=== PATIENT | male | born 2005 | race Caucasian/White ===

== ENCOUNTER 2024-04-06 11:40 | Emergency (ER) | payer BC, SELFPAY ==
[2024-04-06 11:45] VITALS: BP 144/77; PULSE 85; RESP 16; TEMP 36.7; O2SAT 98
--- NOTE | 2024-04-06 12:05 | ED.GENADUL_ITS ---
Discharge Plan Disposition Patient Disposition: Home Discharge Details Clinical Impression: Abdominal pain Primary Care Provider: Unknown,Unknown ED Provider: Adela Gracia Home Meds and New Rx's Prescriptions: Continued omeprazole 40 mg capsule,delayed release(DR/EC) 40 mg PO DAILY Qty: 30 0RF ondansetron HCl 4 mg tablet 4 mg PO Q8H PRN (Reason: nausea and vomiting) Qty: 10 0RF sucralfate [Carafate] 1 gram tablet 1 g PO TID Qty: 21 0RF Discharge Instructions Instructions: Abdominal Pain, Adult ED Additional Instructions: Please follow-up with [facility] first thing Sunday to schedule follow-up appointment. An ultrasound may be ordered by her PCP to further stephany luate your belly pain. Continue taking medications as prescribed. I recommend he take Zofran as needed for nausea, and may be helpful to take this before taking her medications if you feel nausea. For discomfort you may use Tylenol. Return to emergency care if develop new severe abdominal pain, episodes of passing out/dizziness, blood in your vomit or stool, or if you are very worried and need to be rechecked again immediately HPI General Date/Time Provider Initiated Documentation: 04/06/24 11:43 . HPI Narrative: Laz is 18-year-old male who presents to the emergency department today for evaluation of acutely worsening left upper quadrant pain with heartburn. He reports that he has had this pain for 3 months, initially started as intermittent stabbing pain to his left upper quadrant after eating accompanied by burning sensation around his epigastrium. For the last 4 days it has been continuous, waxing and waning in intensity, worse after eating. Today he has been unable to tolerate p.o. intake due to the nausea and pain. He denies associated fever/chills, chest pain, difficulty breathing, rashes, recent tick bites, blood in stool or emesis, change in urine output. He has had occasional vomiting, has diarrhea 3-4 times a day. No history of abdominal surgeries or digestive disorders. He does have significant family history of gallbladder disease. He was seen in urgent care yesterday, prescribed Carafate and omeprazole, as well as Zofran. He took the Carafate today, did not take the Zofran. He came in because he feels like the pain is worse today than it was yesterday. He is in the process of establishing care with PCP at [facility]. Related Data Home Medications Medication Instructions Recorded Confirmed omeprazole 40 mg capsule,delayed 40 mg PO DAILY #30 caps 04/05/24 04/06/24 release ondansetron HCl 4 mg tablet 4 mg PO Q8H PRN nausea and 04/05/24 04/06/24 vomiting #10 tabs sucralfate 1 gram tablet (Carafate) 1 g PO TID #21 tabs 04/05/24 04/06/24 Previous Rx's Medication Instructions Recorded omeprazole 40 mg capsule,delayed 40 mg PO DAILY #30 caps 04/05/24 release ondansetron HCl 4 mg tablet 4 mg PO Q8H PRN nausea and 04/05/24 vomiting #10 tabs sucralfate 1 gram tablet (Carafate) 1 g PO TID #21 tabs 04/05/24 Allergies Allergy/AdvReac Type Severity Reaction Status Date / Time No Known Allergies Allergy Verified 04/06/24 11:49 General Stated Complaint: Abd Prob JUVENCIO: 3 Review of Systems Narrative: see HPI Exam Const General: cooperative, healthy appearing, comfortable, no acute distress, well developed and well groomed Nutritional Appearance: average body habitus HENMT Mouth: moist mucous membranes Resp Effort & Inspection: normal respiratory effort and able to speak in complete sentences Auscultation: clear to auscultation bilaterally Cardio Rate: regular rate Rhythm: regular rhythm GI Inspection: normal to inspection Palpation: soft, no hepatosplenomegaly, not firm, no guarding, not rigid, tender in the LUQ and No ascites Course Vital Signs Vital signs: Vital Signs Temperature 36.7 C 04/06/24 11:45 Pulse 85 04/06/24 11:45 Respiratory Rate 16 04/06/24 11:45 Blood Pressure 144/77 H 04/06/24 11:45 Pulse Oximetry 98 04/06/24 11:45 Temperature 36.7 C 04/06/24 11:45 Pulse 85 04/06/24 11:45 Respiratory Rate 16 04/06/24 11:45 Blood Pressure 144/77 H 04/06/24 11:45 Pulse Oximetry 98 04/06/24 11:45 Oxygen Delivery Method Room Air 04/06/24 11:45 Oxygen Flow Rate 0 04/06/24 11:45 Pain Level 7 04/06/24 11:45 Medical Decision Making Laz is 18-year-old male who presents to the emergency department today for evaluation of acutely worsening left upper quadrant pain with heartburn. He reports that he has had this pain for 3 months, initially started as intermittent stabbing pain to his left upper quadrant after eating accompanied by burning sensation around his epigastrium. For the last 4 days it has been continuous, waxing and waning in intensity, worse after eating. Today he has been unable to tolerate p.o. intake due to the nausea and pain. He denies associated fever/chills, chest pain, difficulty breathing, rashes, recent tick bites, blood in stool or emesis, change in urine output. He has had occasional vomiting, has diarrhea 3-4 times a day. No history of abdominal surgeries or digestive disorders. He does have significant family history of gallbladder disease. He was seen in urgent care yesterday, prescribed Carafate and omeprazole, as well as Zofran. He took the Carafate today, did not take the Zofran. He came in because he feels like the pain is worse today than it was yesterday. He is in the process of establishing care with PCP at [facility]. Physical exam reassuring. Patient is alert and oriented, no acute distress. Abdomen is soft, nondistended, mild tenderness palpation of left upper quadrant. Normoactive bowel sounds. Easy work of breathing, lung sounds clear bilaterally. Normal heart sounds. Slightly dry lips, moist mucous membranes. Clear voice. DDx includes but is not limited to: Gastritis, pancreatitis, peptic ulcer disease, diverticulitis less likely, choledocholithiasis I independently interpreted the following tests: CBC, CMP, lipase all reassuring. No red flags concerning for acute abdomen requiring emergent diagnostic imaging at this time. Reviewed risks versus benefits of CT scan with patient, he is agreeable with plan to hold off on imaging at this time. While in the emergency department Laz received IV famotidine and Zofran with good improvement in nausea. Abdominal discomfort does persist with eating. Toradol given with good pain control. Unclear etiology of abdominal pain, likely gastric in origin. As patient is able to tolerate p.o., recommend following up with PCP (referral placed for establishing care) and continue medications as prescribed. Reviewed red flags indicate need for return to emergency care. He is agreeable plan of care. Medical Records Medical records narrative: I did review express care records from yesterday Quality:SDOH Health Related Social Needs: No Data to Display PFSH All Active Problems (Updated 04/06/24 @ 14:57 by Adela Mayfield) Abdominal pain (Acute) Social History Smoking/Tobacco Use Status: Never Smoking risk assessment performed?: Yes Alcohol Intake: current Alcohol Intake frequency: a few times a month Drug use: Never Substance use type: does not use Housing: apartment Do you feel safe at home: Yes Do you feel safe in your relationship?: Yes PAWSS Have you Been Recently Intoxicated or Drunk Within the Last 30 days?: No Have you Ever Experienced Previous Episodes of Alcohol Withdrawal?: No Have you ever Experienced Withdrawal Seizures?: No Have you ever Experienced Delirium Tremens(DT)s?: No Have you ever undergone Alcohol Rehabilitation Treatment (i.e, inpt ot outpatient treatment programs)?: No Have you ever Experienced Blackouts?: No Have you ever Combined Alcohol with other Downers within the last 90 days?: No Have you ever Combined Alcohol with any other Substance of Abuse during the last 90 days?: No Positive Blood Alcohol level on Presentation? [PCS.BAL]: No Evidence of Increased Autonomic Activity (i.e. HR>120, tremor, sweating, agitation, nausea)?: No Result: 0
[2024-04-06] MEDS: Ondansetron 4 MG/2 ML VIAL IVP (12:12)
[2024-04-06] MEDS: Famotidine 20 MG/2 ML VIAL IVP (12:13)
[2024-04-06 12:17] LABS: Abs Immature Grans 0.03 10^3/uL (0.0-0.06); Absolute Basophil Count 0.06 10^3/uL (0.0-0.2); Absolute Eosinophil Count 0.36 10^3/uL (0.0-0.7); Absolute Lymphocyte Count 4.11 10^3/uL (1.2-3.4); Absolute Monocyte Count 0.82 10^3/uL (0.1-0.8); Absolute Neutrophil Count 3.19 10^3/uL (1.2-6.7); Basophils % 0.7 %; Eosinophils % 4.2 %; HCT 45.5 % (40.0-50.0); HGB 15.9 g/dL (13.5-17.5); Immature Grans % 0.4 %; MCH 30.6 pg (27.0-33.0); MCHC 34.9 % (32.0-36.0); MCV 88 fL (80-95); MPV 9.3 fL (8.0-11.0); Monocytes % 9.6 %; Neutrophils % 37.1 %; Platelet Count 260 10^3/uL (130-400); RDW 12.4 % (11.8-14.1); RDW-SD 40.1 fL; WBC 8.57 10^3/uL (4.4-10.8)
[2024-04-06 12:32] LABS: ALT 25 U/L (16-63); AST 12 U/L (15-37); Albumin 4.8 g/dL (3.4-5.0); Alkaline Phosphatase 71 U/L (46-116); Anion Gap 10.4 mmol/L (3-11); BUN 15 mg/dL (7-18); Bilirubin, Total 0.97 mg/dL (0.2-1.0); CO2 28.6 mmol/L (21.0-32.0); CREATININE 0.9 mg/dL (0.70-1.30); Calcium 9.7 mg/dL (8.5-10.1); Chloride 105 mmol/L (98-107); Estimated GFR 126.17 (mL/min/1.73m2); Glucose 84 mg/dL (74-106); Lipase 28 U/L (16-77); Potassium 3.5 mmol/L (3.5-5.1); Sodium 144 mmol/L (136-145); Total Protein 7.7 g/dL (6.4-8.2)
[2024-04-06 13:21] VITALS: BP 126/72; PULSE 52; RESP 18; O2SAT 97
--- NOTE | 2024-04-06 13:51 | NUR.NOTE ---
Referral given to Care Management to assist Pt with getting a Primary Care Provider to establish care and follow up to Pts abd pain sometime in the next week or two.
[2024-04-06] MEDS: Ketorolac 15 MG/ML VIAL IVP (14:27)
[2024-04-06] MEDS: Omeprazole 20 MG CAPCR 40 MG PO (15:03)
[2024-04-06 15:11] VITALS: BP 124/66; PULSE 57; RESP 18; O2SAT 99
== END 2024-04-06 15:13 | disposition home or self-care (01) ==
PROVIDERS: Emergency Provider Nurse Practitioner Family
DX: R10.12 Left upper quadrant pain (principal); R11.2 Nausea with vomiting, unspecified; R19.7 Diarrhea, unspecified; R10.13 Epigastric pain; Z83.79 Family history of other diseases of the digestive system
CPT/HCPCS: 36415; 80053; 83690; 96374; 96375; 99284; 85025; J1885; J2405

== ENCOUNTER 2024-04-11 20:05 | Outpatient (REF) | payer BC, SELFPAY ==
[2024-04-15 13:42] LABS: Helicobacter pylori Ag, Feces Negative (Negative)
== END 2024-04-11 20:06 | disposition home or self-care (01) ==
LOC: LBN 20:05
PROVIDERS: PCP Physician Assistant; Visit Provider Physician Assistant
DX: K29.60 Other gastritis without bleeding (principal)
CPT/HCPCS: 87338

== ENCOUNTER 2024-04-14 10:57 | Emergency (ER) | payer BC, SELFPAY ==
[2024-04-14 10:59] VITALS: BP 131/76; PULSE 80; RESP 14; TEMP 37; O2SAT 98
== END 2024-04-14 12:19 ==
PROVIDERS: PCP Physician Assistant
DX: Z53.21 Procedure and treatment not carried out due to patient leaving prior to being seen by health care provider (principal)

== ENCOUNTER 2024-05-20 17:20 | Inpatient (IN) | payer BC, SELFPAY ==
[2024-05-20] VITALS (30 sets, daily range): BP systolic 106–148; BP diastolic 66–105; PULSE 42–93; RESP 11–26; TEMP 35.4–37.1; O2SAT 95–100; BMI 23.3
[2024-05-20] MEDS: Acetaminophen 500 MG TAB 1000 MG PO (12:05)
[2024-05-20] MEDS: Gabapentin 300 MG CAP 600 MG PO (12:06)
[2024-05-20] MEDS: Lactated Ringers 1,000 ML 80 ML IV ×2 (12:55→20:35)
[2024-05-20] MEDS: Indocyanine green 25 MG VIAL 5 MG IVP (13:06)
[2024-05-20] MEDS: Normal Saline Flush 10 ML SYR IV ×3 (13:06→19:15)
[2024-05-20] MEDS: Water,Injection,Sterile 10 ML VIAL IJ (13:07)
--- NOTE | 2024-05-20 13:21 | W.ANESPRE ---
General Info Date of Service Date Performed: 05/20/24 Height: 5 ft 9.5 in Weight: 72.6 kg Body Mass Index (BMI): 23.3 Surgical Procedure: Operation Date: 05/20/24 11:10 Proposed Procedure Side Surgeon p Cholecystectomy Laparoscopic Gabriela Gramajo, Meds Allergies and Home Medications Allergies Allergy/AdvReac Type Severity Reaction Status Date / Time No Known Allergies Allergy Verified 05/20/24 11:42 Home Medication ?Medication ?Instructions ?Recorded omeprazole 40 mg capsule,delayed 40 mg PO DAILY 05/13/24 release dimenhydrinate 50 mg tablet 50 mg PO Q6H PRN 05/20/24 (Dramamine) Current Visit Medications: Current Medications Generic Name Dose Route Start Last Admin Trade Name Freq PRN Reason Stop Dose Admin Acetaminophen 1,000 mg 05/20/24 06:00 05/20/24 12:05 Acetaminophen 500 Mg Tab PO 05/20/24 23:59 1,000 mg PREOP LORENZO Administration Gabapentin 600 mg 05/20/24 06:00 05/20/24 12:06 Gabapentin 300 Mg Cap PO 05/20/24 23:59 600 mg PREOP LORENZO Administration Ringer's Solution 1,000 mls @ 80 mls/hr 05/20/24 06:00 05/20/24 12:55 IV 05/20/24 23:59 80 mls/hr INFUSION LORENZO Administration Cefazolin Sodium/Dextrose 1 gm in 50 mls @ 100 mls/hr 05/20/24 06:00 Ancef Duplex IVPB 05/20/24 23:59 PREOP LORENZO IV Miscellaneous Supplies 1 each 05/20/24 06:00 Iv Access IV 05/20/24 23:59 DIRECTED LORENZO Indocyanine Green 5 mg 05/20/24 06:00 05/20/24 13:06 Indocyanine Green 25 Mg Vial IVP 05/20/24 23:59 5 mg DIRECTED LORENZO Administration Sodium Chloride 0 ml 05/20/24 06:00 05/20/24 13:06 Normal Saline Flush 10 Ml Syr IV 05/20/24 23:59 10 ml PRN PRN Administration Sodium Chloride 0 ml 05/20/24 06:00 Normal Saline 10 Ml Vial IJ 05/20/24 23:59 DIRECTED PRN Sterile Water 0 ml 05/20/24 06:00 05/20/24 13:07 Water,Injection,Sterile 10 Ml Vial IJ 05/20/24 23:59 10 ml DIRECTED PRN Administration PFS Active Problems Active Problems: Problem Status Onset Code History of colonoscopy Chronic Z98.890 Normal esophagogastroduodenoscopy (EGD) Acute Z01.89 Anal fissure Acute K60.2 Gall stone Acute K80.20 Rectal bleeding Acute K62.5 Abdominal pain Acute R10.9 Medical History Medical History Undescended testes Surgical History Surgical History History of testicular surgery infant; undescended teste(s) Tobacco Smoking/Tobacco Use Status: Never Alcohol Alcohol Intake: current Alcohol intake frequency: a few times a month Substance Use Substance use: Never Substance use type: does not use Vital Signs and Lab Results Vital Signs Most Recent Vital Signs in EMR: Most Recent Vital Signs Temp Pulse Resp BP Pulse Ox 37.1 C 76 16 126/80 98 05/20/24 11:44 05/20/24 11:44 05/20/24 11:44 05/20/24 11:44 05/20/24 11:44 Lab Results Blood Type / Crossmatch: No Data to Display Complete Blood Count: No Data to Display Complete Metabolic Panel: No Data to Display Liver Function Panel: No Data to Display Coagulation Panel: No Data to Display Cardiac Panel: No Data to Display Arterial Blood Gas: No Data to Display Venous Blood Gas: No Data to Display Pancreas Panel: No Data to Display Thyroid Panel: No Data to Display Infectious Disease: No Data to Display Blood Cultures: No Data to Display Toxicology Panel: No Data to Display Anesthesia Assessment and Plan Anesthesia History Personal History: No History of Anesthesia Complications Family History: No Family History of Anesthesia Complications Exercise Tolerance Exercise Tolerance: Metabolic Equivalents>4 Pertinent Negatives Pertinent Negatives: No Major Cardiovascular Symptoms or Complaints, No Major Pulmonary Symptoms or Complaints and No History of CVA/TIA Cardiac & Pulmonary Exam Cardiac Exam: Normal S1/S2 Heart Sounds Pulmonary Exam: Clear Bilateral Breath Sounds Implantable Cardiac Device Does patient have a Pacemaker or an ICD?: No Airway Exam Known Difficult Airway: No Mallampati Class: 1 Mouth Opening: Normal (> 3cm) Thyromental Distance: Greater than 3 cm Neck Range of Motion: Full ROM Neck Circumference: Normal Teeth Condition: Normal Dentition ASA Classification ASA Score: ASA 2 Emergency Case?: No NPO Status NPO Status: NPO Clears >2 hours, Solids >8 hours Anesthesia Plan Resuscitation Status: Full Code Anesthesia Technique: General Anesthesia Airway Planned: Endotracheal Tube Monitors Used: Standard Monitors
[2024-05-20] MEDS: ceFAZolin 1 GM/50 ML BAG IVPB (14:02)
[2024-05-20] MEDS: Bupivacaine 0.25% Pres-Free W/EPI 30 ML VIAL (14:36)
--- NOTE | 2024-05-20 15:16 | ROE_ITS ---
Date of service: 05/20/24 Time of Service: 15:16 Operative Note Operative Note DATE OF PROCEDURE: 05/20/24 PRE-OP DIAGNOSIS: symptomatic cholelithiasis POST-OP DIAGNOSIS: same Weakening of the right inguinal internal ring PROCEDURE: Laparoscopic cholecystectomy oh SURGEON: Gabriela Gramajo PLATE STACKER: Ismael Lobo PLATE STACKER: Loli Helm ANESTHESIA TYPE: Local By Surgeon and General LMA/ETT Refer to Anesthesia Record ESTIMATED BLOOD LOSS: 20 PATHOLOGY: other (Gallbladder) COMPLICATIONS: None Patient was transported to: PACU Patient's condition: stable Indications: This patient is a 18-year-old male with history of symptomatic cholelithiasis. Symptomatic cholelithiasis was based on history, physical exam and imaging studies. After complete history and physical examination was performed and laparoscopic cholecystectomy with possible open conversion was recommended. The risk and benefits of procedure were explained to the patient. Informed consent was obtained and placed on the chart. Procedure Description: The patient was brought to the operating room where he was placed on the operating table in the supine position. After adequate general endotracheal anesthesia was administered by department of anesthesia, preop antibiotics were administered and the abdomen was prepped and draped in standard sterile fashion. A timeout was performed to confirm the site of surgery. Using a #15 blade scalpel an infraumbilical incision was made. Mini laparotomy technique was then used to gain entry to the peritoneal cavity. A 12 mm trocar was placed through the incision. The abdominal cavity was insufflated to a pressure of 12 to 15 mmHg using CO2 gas. A 10 mm, 0 degree laparoscope was inserted into the peritoneal cavity. Upon primary survey of the abdomen there was no apparent injury from trocar insertion. The patient did appear to have thinning of the right inguinal internal ring and this was photo documented. Attention was then turned to the xiphoid region. A 12 mm trocar was placed in the subxiphoid region. Two additional 5 mm trocars were placed. One 5 mm trocar was placed in the mid clavicular line. A second 5 mm trocar was placed in the neck mid axillary line. The patient was then repositioned to a reverse Trendelenburg with the right side up. Blunt graspers were introduced. A blunt grasper was placed on the fundus of the gallbladder and the gallbladder was retracted cephalad. A second grasper was placed on the infundibulum of the gallbladder which was retracted laterally. [place] dissector was introduced and used to take down peritoneal attachments to the surface of the gallbladder. The cystic duct and the cystic artery was skeletonized. The Calot's triangle was visualized. Three endoclips were placed on the cystic duct approximately, one clip was placed on the cystic duct distally. The cystic duct was then divided using EndoShears. The cystic artery was then further skeletonized. Three endoclips were placed on the cystic artery approximately and one distally. The cystic artery was then divided using EndoShears. A small posterior artery entering the gallbladder was visualized. It was further skeletonized. Three endoclips were placed on it distally and one proximally. The artery was divided. Next Bovie electrocautery was used to dissect the gallbladder off its base within the gallbladder fossa. Hemostasis was checked and achieved during the dissection. The gallbladder was placed in the Endo Catch bag and retrieved from the peritoneal cavity. Attention was then turned to the gallbladder fossa. The liver bed was dry. The clips on the cystic duct remnant and the cystic artery remnant were visualized. There was no oozing of blood or bile. Excess irrigation was suctioned. The patient was returned to neutral position. All trocars were removed under direct visualization. There was no bleeding from the trocar sites. The abdomen was then desufflated. The skin and subcutaneous tissue of the incisions were anesthetized. The fascia of the trocar sites greater than 5 mm were reapproximated using 0 Vicryl [id number] stitches. Skin edges were reapproximated using 4-0 Vicryl with a running subcuticular stitch. The abdomen was then cleaned and dry sterile dressing applied patient tolerated procedure well. Patient was taken to PACU in good condition. The needle, sponge, instrument counts were all correct at the end of the procedure.
--- NOTE | 2024-05-20 15:27 | W.PM.DSUDISC ---
Date of service: 05/20/24 Time of Service: 15:27 Discharge Plan Disposition Patient Disposition: Home Condition: Good Discharge Details Reason For Visit: cholelithiasis Attending Provider: Gabriela Gramajo Primary Care Provider: Ruth Trinidad Home Meds and New Rx's Prescriptions: No Action omeprazole 40 mg capsule,delayed release(DR/EC) 40 mg PO DAILY dimenhydrinate [Dramamine] 50 mg tablet 50 mg PO Q6H PRN Discharge Instructions Instructions: Cholecystectomy, Laparoscopic Surgery Additional Instructions: Follow-up in the office in 1 to 2 weeks. Return to emergency department in the case of fever, abdominal pain, redness and/or swelling at the incision sites. Also return to emergency department in the case of nausea and vomiting. Stand Alone Forms: Anesthesia Discharge InstBlayne Benitez (DSU) Activity:: Activity as Tolerated Remove Dressings/Wound Care:: Do Not Remove Shower/Bathe:: 24 hours Diet:: As Tolerated Discharge Orders Discharge Orders: Discharge Order (Routine); Ordered 05/20/24 Ordered By: Gabriela Gramajo DS: Diagnosis Discharge Diagnosis (1) Gall stone: Status: Acute Asessment and Plan: s/p laparoscopic cholecystectomy (2) Abdominal pain: Status: Acute Asessment and Plan: same as above
[2024-05-20] MEDS: fentaNYL 100 MCG/2 ML VIAL IVP ×2 (16:00→16:06)
[2024-05-20] MEDS: HYDROmorphone 2 MG/ML SYR IVP (16:10)
--- NOTE | 2024-05-20 16:47 | W.ANESPOSTOP ---
Postoperative Evaluation Date, Time and Location Date Performed: 05/20/24 Time Performed: 16:47 Patient Location: Day Surgery Unit Vital Signs Most Recent Imported Vital Signs: Most Recent Vital Signs Temp Pulse Resp BP Pulse Ox 36.4 C L 50 L 16 106/86 99 05/20/24 16:34 05/20/24 16:34 05/20/24 16:34 05/20/24 16:34 05/20/24 16:34 Pain Score Most Recent Pain Score: Most Recent Pain Score Pain Level 6 05/20/24 16:34 Assessment Mental Status: Awake (Alert & Oriented to Patient Baseline) Airway and Respiratory Function: Patent airway with normal (patient baseline) respiratory exam Cardiovascular Function: Hemodynamically Stable Hydration Status: Adequately Hydrated Nausea & Vomiting: No Nausea or Vomiting Pain: Pain is Moderate or Severe Postoperative Pain Management: Pain being addressed with medication Peripheral Nerve Block: Patient did not receive a nerve block
--- NOTE | 2024-05-20 17:31 | HPE_ITS ---
Date of service: 05/20/24 Time of Service: 17:31 Assessment and Plan Assessment and plan (1) Postoperative pain: Status: Acute Assessment and plan: Intractable postoperative pain after uneventful laparoscopic cholecystectomy. The patient is hemodynamically stable. There is no evidence of any intra- abdominal complication. The recommendation was made for observation overnight for pain control. The patient will be ordered p.o. and IV pain medication for breakthrough. He is allowed to have a regular diet. Anticipate discharge in the a.m. History of Present Illness Narrative: 18-year-old male presented for an outpatient laparoscopic cholecystectomy for symptomatic cholelithiasis. The patient went on to have an uneventful laparoscopic cholecystectomy however postoperatively he had intractable postoperative pain. The recommendation was made for overnight observation for pain control. Review of Systems All systems reviewed & are unremarkable except as noted in HPI and below PFSH All Active Problems (Updated 05/20/24 @ 17:33 by Gabriela Gramajo DO) Postoperative pain (Acute) History of colonoscopy (Chronic) 05/12/24 [facility] Normal esophagogastroduodenoscopy (EGD) (Acute) 05/12/24 [facility] Anal fissure (Acute) Gall stone (Acute) Rectal bleeding (Acute) Abdominal pain (Acute) Medical History (Updated 05/20/24 @ 17:33 by Gabriela Gramajo DO) Undescended testes Surgical History History of testicular surgery ; undescended teste(s) Social History Smoking/Tobacco Use Status: Never Smoking risk assessment performed?: Yes Alcohol Intake: current Alcohol Intake frequency: a few times a month Drug use: Never Substance use type: does not use Housing: apartment Do you feel safe at home: Yes Additional Social history: unable to assess privately Meds Allergies and Home Medications Allergies Allergy/AdvReac Type Severity Reaction Status Date / Time No Known Allergies Allergy Verified 05/20/24 11:42 Home Medications ?Medication ?Instructions ?Recorded ?Confirmed ?Type omeprazole 40 mg capsule,delayed 40 mg PO DAILY 05/13/24 05/20/24 History release dimenhydrinate 50 mg tablet 50 mg PO Q6H PRN 05/20/24 05/20/24 History (Dramamine) Exam Resp Effort & Inspection: normal respiratory effort and able to speak in complete sentences Auscultation: clear to auscultation bilaterally Cardio Jugular venous pressure: no JVD Rate: regular rate Rhythm: regular rhythm Heart Sounds: S1 normal and S2 normal GI Other: Incisions are clean and dry. Postoperative tenderness Results Last Vital Signs Temp 97.5 F L 05/20/24 17:13 Pulse 54 L 05/20/24 17:13 Resp 22 05/20/24 17:13 BP 129/84 05/20/24 17:13 Pulse Ox 100 05/20/24 17:13 Time Spent Time spent with Patient: <40 minutes Time was spent: preparing to see the patient(eg.review tests), ordering medications,tests, procedures, referring, communicating with other health youth career specialist and counseling the patient
[2024-05-20] MEDS: traMADol 50 MG TAB PO (17:40)
[2024-05-20] MEDS: Ondansetron 4 MG/2 ML VIAL IVP (17:54)
[2024-05-20] MEDS: MORPHine 10 MG/ML VIAL 2 MG IVP (17:56)
--- NOTE | 2024-05-20 18:25 | NUR.NOTE ---
Nursing Note: pt reporting 10/10 pain, and nausea, 300 cc of emesis.
[2024-05-20] MEDS: Prochlorperazine 10 MG/2 ML VIAL 5 MG IVP (19:13)
[2024-05-20] MEDS: Ketorolac 15 MG/ML VIAL IVP (19:14)
[2024-05-21] MEDS: Prochlorperazine 10 MG/2 ML VIAL 5 MG IVP (00:24)
[2024-05-21] MEDS: Ketorolac 15 MG/ML VIAL IVP ×2 (02:21→09:10)
[2024-05-21] MEDS: Acetaminophen 500 MG TAB 1000 MG PO (03:45)
[2024-05-21 07:32] VITALS: BP 132/70; PULSE 55; RESP 18; TEMP 37.4; O2SAT 97
[2024-05-21] MEDS: Docusate Sodium 100 MG CAP PO (09:09)
[2024-05-21] MEDS: Normal Saline Flush 10 ML SYR IVP (09:10)
--- NOTE | 2024-05-21 10:58 | W.PM.PROGNOT ---
Date of Service Date of service: 05/21/24 Time of Service: 09:45 Assessment and Plan Assessment and plan (1) Postoperative pain: Status: Acute Assessment and plan: patient meets criteria for discharge today. discharge instructions were explained to the patient he will follow with Dr. Garland in 1-2 weeks Subjective Subjective Patient reports: feels better, pain is less, tolerating liquids well, tolerating a regular diet, flatus and no bowel movement Interval history since last seen: POD#1 s/p lap be, admitted overnight for pain control Today the patient states that he feels much better. Pain is controlled. Denies CP/SOB/N/V. ambulated today Exam Resp Effort & Inspection: normal respiratory effort and able to speak in complete sentences Auscultation: clear to auscultation bilaterally Cardio Rate: regular rate Rhythm: regular rhythm GI Inspection: normal to inspection Palpation: soft Auscultation: normal bowel sounds Other: incisions are clean/dry/intact. appropriate post op tenderness Objective Last Vital Signs Temp 99.3 F 05/21/24 07:32 Pulse 55 L 05/21/24 07:32 Resp 18 05/21/24 07:32 BP 132/70 05/21/24 07:32 Pulse Ox 97 05/21/24 07:32 Time Spent with Patient Time Spent with Patient: <25 minutes Time was spent: preparing to see the patient(eg.review tests), counseling the patient and care coordination
--- NOTE | 2024-05-21 11:03 | W.PM.DS.N ---
Date of service: 05/21/24 Time of Service: 11:03 DS: Diagnosis Discharge Diagnosis (1) Postoperative pain: Status: Acute Asessment and Plan: issue is resolved. patient meets criteria for discharge home. he will follow up in the office with Dr. Martinez in 1 -2 weeks discharge instructions were explained Discharge Plan Disposition Patient Disposition: Home Condition: Good Discharge Details Reason For Visit: Intractable Post Op Pain s/p Lap Cholec Admit Date/Time: 05/20/24 17:20 Admit Provider: Gabriela Gramajo Attending Provider: Gabriela Gramajo Primary Care Provider: Ruth Trinidad Home Meds and New Rx's Prescriptions: New tramadol 50 mg Tablet 50 mg PO Q6H PRN PRN (Reason: Pain) Qty: 4 0RF Continued omeprazole 40 mg capsule,delayed release(DR/EC) 40 mg PO DAILY dimenhydrinate [Dramamine] 50 mg tablet 50 mg PO Q6H PRN Discharge Instructions Instructions: Cholecystectomy, Laparoscopic Surgery Additional Instructions: Follow-up in the office in 1 to 2 weeks. Return to emergency department in the case of fever, abdominal pain, redness and/or swelling at the incision sites. Also return to emergency department in the case of nausea and vomiting. Stand Alone Forms: Anesthesia Discharge Blayne Palma (DSU) Referrals: Dominique Martinez DO [OSTEOPATHIC DOCTOR] - Activity:: Activity as Tolerated Equipment/Supplies:: No Equipment Needed Diet:: As Tolerated Discharge Orders Discharge Orders: Discharge Order (Routine); Ordered 05/21/24 Ordered By: Gabriela Gramajo DS: Summary Summary Time spent discussing smoking cessation with patient: 3 to 10 minutes Time Spent with Patient providing and/or coordinating discharge services: Less than 30 minutes Status at Discharge Functional status at discharge: independent ambulation Overall status at discharge: patient is back to baseline Mental Status: mental status grossly normal Speech and Movement: speech and movement normal Mood: congruent mood Affect: normal affect Quality:SDOH Health Related Social Needs: No Data to Display Exam Resp Effort & Inspection: normal respiratory effort and able to speak in complete sentences Auscultation: clear to auscultation bilaterally Cardio Rate: regular rate Rhythm: regular rhythm Heart Sounds: S1 normal and S2 normal GI Inspection: normal to inspection and incision (clean, dry, intact) Palpation: soft Psych Mental Status: mental status grossly normal Speech and Movement: speech and movement normal Mood: congruent mood Affect: normal affect DS: Data Vitals/I&O Vitals and I&O: Vital Signs Temperature 99.3 F 05/21/24 07:32 Temperature Source Tympanic 05/21/24 07:32 Pulse 55 L 05/21/24 07:32 Pulse Rhythm Regular 05/21/24 10:33 Pulse 64 05/20/24 16:21 Respiratory Rate 18 05/21/24 07:32 Respiratory Effort Normal 05/21/24 10:33 Respiratory Depth Normal 05/21/24 10:33 Respiratory Pattern Normal 05/21/24 10:33 Blood Pressure 132/70 05/21/24 07:32 Blood Pressure Mean 103 05/20/24 16:21 Pulse Oximetry 97 05/21/24 07:32 Respiratory End-tidal CO2 30 05/20/24 16:06 Oxygen Delivery Method Room Air 05/21/24 07:32 Oxygen Flow Rate 0 05/21/24 07:32 Pain Level 7 05/21/24 09:10 Comment Pt's pulse kept dropping down into the low 40's but then would go back up, drop again, and go back up. Nurse was notified. 05/20/24 19:10 Intake & Output 05/20/24 05/20/24 05/21/24 11:59 23:59 11:59 Intake Total 1389.334 / 1389.334 334.667 / 334.667 Output Total 270 / 270 Balance 1119.334 / 1119.334 334.667 / 334.667 Weight 72.6 kg 72.6 kg Intake: IV 1369.334 / 1369.334 334.667 / 334.667 Oral 20 / 20 Output: Emesis 250 / 250 Estimated Blood Loss 20 20 Other: Urine Color Yellow Urine Appearance Clear Clear Emesis Description Clear/Water Voiding Methods Toilet PFSH All Active Problems (Updated 05/20/24 @ 17:33 by Gabriela Gramajo DO) Postoperative pain (Acute) History of colonoscopy (Chronic) 05/12/24 [facility] Normal esophagogastroduodenoscopy (EGD) (Acute) 05/12/24 [facility] Anal fissure (Acute) Gall stone (Acute) Rectal bleeding (Acute) Abdominal pain (Acute) Medical History (Updated 05/20/24 @ 17:33 by Gabriela Gramajo DO) Undescended testes Surgical History History of testicular surgery infant; undescended teste(s) Social History Smoking/Tobacco Use Status: Never Smoking risk assessment performed?: Yes Alcohol Intake: current Alcohol Intake frequency: a few times a month Drug use: Never Substance use type: does not use Housing: apartment Do you feel safe at home: Yes Additional Social history: unable to assess privately Time Spent with Patient Time Spent with Patient: <45 minutes Time was spent: preparing to see the patient(eg.review tests), counseling the patient and care coordination
== END 2024-05-21 12:07 | disposition home or self-care (01) | DRG 419 ==
LOC: MS 18:15
PROVIDERS: Admitting Provider Surgery; PCP Nurse Practitioner Family; Visit Provider Surgery
PROC: 0FT44ZZ Resection of Gallbladder, Percutaneous Endoscopic Approach (ICD-10-PCS; CPT 47562; principal; 2024-05-20 11:00)
DX: K80.20 Calculus of gallbladder without cholecystitis without obstruction (principal); G89.18 Other acute postprocedural pain; R10.9 Unspecified abdominal pain; M62.81 Muscle weakness (generalized); K82.8 Other specified diseases of gallbladder
CPT/HCPCS: 47562; 00123; 88304; J0690; J0780; J1100; J1170; J1885; J2001; J2250; J2270; J2405; J2704; J3010

== ENCOUNTER 2024-05-27 12:13 | Emergency (ER) | payer BC, SELFPAY ==
[2024-05-27 12:19] VITALS: BP 114/72; PULSE 82; RESP 16; TEMP 36.6; O2SAT 97
--- OUTSIDE RECORDS SUMMARY | 2024-05-27 12:41 | XMS_ITS | Encounter Summary ---
Author Organization [facility] Address [address] [place] [address] Care Team Providers Care Youth Director Name Role Phone None, Provider Primary Care Provider Ruth Lane Primary Care Provider [phone] Encounter Details Date Type Department Care Team (Late st Contact Info) Description 04/11/2024 Lab Requisition [facility] Pathology & Laboratory Medicine - [address] [address] Outr Resulting Lab, Provider Social History Tobacco Use Types Packs/Day Years Used Date Smoking Tobacco: Never Assessed Sex and Gender Information Value Date Recorded Sex Assigned at Not on file Gender Identity Male 05/14/2024 8:57 EDT Sexual Orientation Not on file documented as of this encounter Plan of Treatment Not on file documented as of this encounter Procedures Procedure Name Priority Date/Time Associated Diagnosis Comments H. PYLORI ANTIGEN Routine 04/11/2024 10: 28 EDT documented in this encounter Results * H. PYLORI ANTIGEN (04/11/2024 10:28 EDT) H. Pylori Negative Negative 04/15/2024 13:38 EDT [facility] Comment:Indicates the absenc e of H. pylori stool antigen, (or the level of antigen is below that which can be detected by the assay) Feces SPECIMEN FROM RECTUM / Unknown 04/11/2024 10:28 EDT 04/11/2024 17:24 EDT Narrative [facility] - 04/15/2024 13:38 EDT New Liaison XL testing method used as of 07/30/2023 Provider Outr Resulting Lab MICROBIOLOGY - GENERAL ORDERABLES [facility] [address] [place], [place] [id number] documented in this encounter Visit Diagnoses Not on filedocumented in this encounter Care Teams Youth Director Relationship Specialty Start Date End Date None, Provider PCP - General 05/13/23 05/13/24 Ruth Trinidad [address] [place] [id number] PCP - General Family Medicine - Primary Care 05/14/24 documented as of this encounter
--- OUTSIDE RECORDS SUMMARY | 2024-05-27 12:41 | XMS_ITS | Encounter Summary ---
Author Organization [facility] Address [address] [place] [address] Care Team Providers Care Corporate Tax Preparer Name Role Phone None, Provider Primary Care Provider Ruth Lane Primary Care Provider [phone] Encounter Details Date Type Department Care Team (Late st Contact Info) Description 05/13/2024 Lab Requisition [facility] Pathology & Laboratory Medicine - [facility] [address] [place] [address] Reece Perales MD [address] [place] [phone] Nausea with vomiting, unspecified; Melena; Other specified diseases of anus and rectum Social History Tobacco Use Types Packs/Day Years Used Date Smoking Tobacco: Some Days Cigarettes Smokeless Tobacco: Current Comments:Nicotine vaping occ Alcohol Use Standard Drinks/Week Comments Yes 0 (1 standard drink = 0.6 oz pur e alcohol) occ Sex and Gender Information Value Date Recorded Sex Assigned at Not on file Gender Identity Male 05/14/2024 8:57 EDT Sexual Orientation Not on file documented as of this encounter Plan of Treatment Not on file documented as of this encounter Procedures Procedure Name Priority Date/Time Associated Diagnosis Comments SURGICAL PATHOLOGY Today 05/12/2024 14 :02 EDT Nausea with vomiting, unspecified Melena Other specified diseases of anus and rectum documented in this encounter Results * SURGICAL PATHOLOGY (05/12/2024 14:02 EDT) Note to Patient The following pathology results have been interpreted by your pathologist and may be available to you before your health provider has had the opportunity to review them. Please allow time for your provider to receive these results and explore management options, if applicable. 05/15/2024 16:11 [facility] Final Diagnosis A. DUODENUM, BIOPSY: - Duodenal mucosa with no significant pathologic change. - No evidence of gluten-sensitive enteropathy (celiac sprue). B. DUODENUM, BULB, BIOPSY: - Duodenal mucosa with no significant pathologic change. C. STOMACH, ANTRUM, BIOPSY: - Antral-type mucosa with a minimal, patchy chronic inactive gastritis. - No intestinal metaplasia or dysplasia. - No evidence of Helicobacter pylori on routine H&E stain. D. STOMACH, BODY, BIOPSY: - Oxyntic-type mucosa with no significant pathologic change. - No intestinal metaplasia or dysplasia. - No evidence of Helicobacter pylori on routine H&E stain. E. ESOPHAGUS, DISTAL, BIOPSY: - Benign squamous epithelium with no significant pathologic change. - No increase in intraepithelial eosinophils. F. ESOPHAGUS, MID, BIOPSY: - Benign squamous epithelium with no significant pathologic change. - No increase in intraepithelial eosinophils. 05/15/2024 16:11 [facility] Diagnosis Comment The technical component of the specimen processing was performed at the [facility] Pathology Department, [address] [place] [address] (CLIA [id number]). The professional component of the specimen evaluation (slide review and issuing of the final diagnosis) was performed at [facility], [address] [place] [address] (CLIA License Number [id number]). 05/15/2024 16:11 [facility] Attestation By the signature below, the attending physician certifies that they have 1) personally conducted a gross and/or microscopic examination of the described specimen(s), and/or personally interpreted the results of laboratory testing of the described specimen(s), and 2) personally rendered or confirmed the above diagnosis. 05/15/2024 16:11 [facility] at 1611 Clinical History Gastritis, epigastric pain, dysphagia, N/V, constipation, hematochezia, posterior anal fissure; clinical diagnosis code: K62.89, K92.1, R11.2 05/15/2024 16:11 EDT [facility] Gross Description A. Received in formalin labelled with proper patient identification (initials C, E) and duodenum are multiple linder irregular soft tissue fragments ranging from 0.1 x 0.1 x 0.1 cm to 0.2 x 0.2 x 0.2 cm. Entirely submitted in A1. B. Received in formalin labelled with proper patient identification (initials C, E) and duodenal bulb are 2 linder irregular soft tissue fragments measuring 0.2 x 0.2 x 0.2 cm and 0.3 x 0.3 x 0.3 cm. Entirely submitted in B1. C. Received in formalin labelled with proper patient identification (initials C, E) and gastric antrum are 2 linder irregular soft tissue fragments each averaging 0.2 x 0.2 x 0.2 cm. Entirely submitted in C1. D. Received in formalin labelled with proper patient identification (initials C, E) and gastric body is a 0.3 x 0.3 x 0.3 cm linder irregular soft tissue fragment. Entirely submitted in D1. E. Received in formalin labelled with proper patient identification (initials C, E) and distal esophagus are 4 linder irregular soft tissue fragments ranging from 0.1 x 0.1 x 0.1 cm to 0.2 x 0.2 x 0.2 cm. Entirely submitted in E1. F. Received in formalin labelled with proper patient identification (initials C, E) and mid esophagus is a 0.3 x 0.3 x 0.3 cm linder irregular soft tissue fragment. Entirely submitted in F1. CALEB MERRITT(ASCP) 05/14/2024 7:25 05/15/2024 16:11 T [facility] Performing Lab [facility] 16:11 T [facility] Scanned Images 05/15/2024 16:11 T [facility] Tissue ESOPHAGEAL STRUCTURE / Unknown 05/12/2024 14:02 EDT 05/13/2024 22:28 EDT Tissue specimen (specimen) STRUCTURE OF SMALL INTESTINE / Unknown 05/12/2024 14:02 EDT 05/13/2024 22:29 EDT Tissue specimen (specimen) STOMACH STRUCTURE / Unknown 05/12/2024 14:02 EDT 05/13/2024 22:29 EDT Tissue specimen (specimen) STOMACH STRUCTURE / Unknown 05/12/2024 14:02 EDT 05/13/2024 22:29 EDT Tissue specimen (specimen) ESOPHAGEAL STRUCTURE / Unknown 05/12/2024 14:02 EDT 05/13/2024 22:29 EDT Tissue specimen (specimen) ESOPHAGEAL STRUCTURE / Unknown 05/12/2024 14:02 EDT 05/13/2024 22:29 EDT Reece Perales MD PATHOLOGY ORD ERABLES [facility] [address] [place] [id number] documented in this encounter Visit Diagnoses Diagnosis Nausea with vomiting, unspecified Melena Blood in stool Other specified diseases of anus and rectum documented in this encounter Care Teams Corporate Tax Preparer Relationship Specialty Start Date End Date None, Provider PCP - General 05/13/23 05/13/24 Ruth Trinidad [address] [place] [phone] PCP - General Family Medicine - Primary Care 05/14/24 documented as of this encounter
--- OUTSIDE RECORDS SUMMARY | 2024-05-27 12:41 | XMS_ITS | Encounter Summary ---
Author Organization [facility] Address [address] [place] [address] Care Team Providers Care Concrete Pouring Supervisor Name Role Phone None, Provider Primary Care Provider Unavailabl e Encounter Details Date Type Department Care Team (Latest Contact Info) Description 05/13/2023 Travel Social History Tobacco Use Types Packs/Day Years [...] on file documented as of this encounter Visit Diagnoses Not on filedocumented in this encounter Care Teams Concrete Pouring Supervisor Relationship Specialty Start Date End Date None, Provider PCP - General 05/13/23 05/13/24 documented as of this encounter
--- OUTSIDE RECORDS SUMMARY | 2024-05-27 12:41 | XMS_ITS | Encounter Summary ---
Author Organization [facility] Address [address] [place] [address] Care Team Providers Care Ocular Care Technician Name Role Phone Ruth Trinidad Primary Care Provider [phone] Encounter Details Date Type Department Care Team (Late st Contact Info) Description 05/21/2024 Lab Requisition [facility] Pathology & Laboratory Medicine - [address] [address] Gabriela Gramajo, DO [address] [place] [phone] Encounter for other general examination Social History Tobacco Use Types Packs/Day Years [...] Date/Time Associated Diagnosis Comments SURGICAL PATHOLOGY Today 05/20/2024 14 :40 EDT Encounter for other general examination documented in this encounter Results * SURGICAL PATHOLOGY (05/20/2024 14:40 EDT) Note to Patient The following pathology results have been interpreted by your pathologist and may be available to you before your health provider has had the opportunity to review them. Please allow time for your provider to receive these results and explore management options, if applicable. 05/26/2024 15:08 [facility] Final Diagnosis A. GALLBLADDER, CHOLECYSTECTOMY: - Focal adenomyomatous hyperplasia. 05/26/2024 15:08 [facility] Attestation There was significant resident/fellow involvement in the diagnostic evaluation of this case. By the signature below, the attending physician certifies that they have personally conducted a gross and/or microscopic examination of the described specimens and rendered or confirmed the above diagnosis. 05/26/2024 15:08 [facility] at 1508 Clinical History Gallbladder disease 05/26/2024 15:08 [facility] Gross Description A. Received in formalin labelled with proper patient identification (initials C, E) and gallbladder is an 8.4 x 3.0 x 3.0 cm intact gallbladder with 0.4 cm in length by 0.3 cm in diameter of attached cystic duct. A lymph node is not identified adjacent to the cystic duct. The serosa is linder-green, smooth and glistening. The wall averages 0.2 cm in thickness and the mucosa is green and velvety. No calculi are identified within the specimen or specimen container. Field Sales Consultant sections to include the inked cystic duct margin are submitted in A1. CALEB MERRITT(ASCP) 05/21/2024 10:37 05/26/2024 15:08 [facility] Resident/Rashad w: Karlos Licona DO 05/26/2024 15:08 T [facility] Performing Lab [facility] 05/26/2024 15:08 T [facility] Scanned Images 05/26/2024 15:08 [facility] Tissue GALLBLADDER STRUCTURE / Unknown 05/20/2024 14:40 EDT 05/21/2024 9:35 EDT Gabriela Gramajo DO PATHOLOGY ORDERABLES [facility] [address] [place] [address] documented in this encounter Visit Diagnoses Diagnosis Encounter for other general examination documented in this encounter Care Teams Ocular Care Technician Relationship Specialty Start Date End Date Amos, Ruth Paulino [address] [place] [address] PCP - General Family Medicine - Primary Care 05/14/24 documented as of this encounter
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
--- OUTSIDE RECORDS SUMMARY | 2024-05-27 12:41 | XMS_ITS | Encounter Summary ---
Author Organization [facility] Address [address] [place] [address] Care Team Providers Care Lapel Padder Name Role Phone MaosRuth Primary Care Provider [phone] Encounter Details Date Type Department Care Team (Latest Contact Info) Description 05/14/2024 Travel Social History Tobacco Use Types Packs/Day [...] on filedocumented in this encounter Care Teams Lapel Padder Relationship Specialty Start Date End Date Ruth Trinidad [address] [place] [id number] PCP - General Family Medicine - Primary Care 05/14/24 documented as of this encounter
--- OUTSIDE RECORDS SUMMARY | 2024-05-27 12:41 | XMS_ITS | Referral Summary ---
Author Organization [facility] Address [address] [place] [address] Care Team Providers Care Staffing Manager Name Role Phone Ruth Trinidad Primary Care Provider [phone] Encounters Date Type Department Care Team Description 05/21/2024 Lab Requisition [facility] Pathology & Laboratory Medicine [address] [address] Gabriela Gramajo, Encounter for other general examination 05/14/2024 Travel 05/14/2024 8:25 EDT - 05/14/2024 11:38 EDT Emergency [facility] Emergency Department - [address] [address] Serafin Caldwell MD Rectal bleeding (Primary Dx); Calculus of gallbladder without cholecystitis without obstruction Discharge Disposition: Home or Self Care 05/13/2024 Lab Requisition [facility] Pathology & Laboratory Medicine [address] [address] Reece Perales MD Nausea with vomiting, unspecified; Melena; Other specified diseases of anus and rectum 04/11/2024 Lab Requisition [facility] Pathology & Laboratory [address] [address] Outr Resulting Lab, Provider from Last 3 Months Allergies No known active allergies Medications No known medications Social History Tobacco Use Types Packs/Day Years [...] 8:57 EDT Sexual Orientation Not on file Last Filed Vital Signs Vital Sign Reading Time Taken Comments Blood Pressure 123/84 05/14/2024 1100 EDT Pulse 61 05/14/2024 1100 EDT Temperature 36.5 ??C (97.7 ??F) 05/14/2024 1100 EDT Respiratory Rate 16 05/14/2024 1100 EDT Oxygen Saturation 99% 05/14/2024 1100 EDT Inhaled Oxygen Concentration - - Weight 71.7 kg (158 lb) 05/14/2024 0824 EDT Height 175.3 cm (5' 9) 05/14/2024 08 EDT Body Mass Index 23.33 05/14/2024 08 EDT Plan of Treatment Not on file Procedures Procedure Name Priority Date/Time Associated Diagnosis Comments SURGICAL PATHOLOGY Today 05/20/2024 14 :40 EDT Encounter for other general examination POCT US ED BILIARY 05/14/2024 10 :39 EDT COMPREHENSIVE METABOLIC PANEL (CMP) STAT 05/14/2024 9:12 EDT COMPLETE BLOOD COUNT AND DIFFERENTIAL STAT 05/14/2024 9:12 EDT SURGICAL PATHOLOGY Today 05/12/2024 14 :02 EDT Nausea with vomiting, unspecified Melena Other specified diseases of anus and rectum H. PYLORI ANTIGEN Routine 04/11/2024 10: 28 EDT from Last 3 Months Results * SURGICAL PATHOLOGY (05/20/2024 14:40 EDT) Only the most recent of2 resultswithin the time period is included. Note to Patient The following pathology results have been interpreted by your pathologist and may be available to you before your health provider has had the opportunity to review them. Please allow time for your provider to receive these results and explore management options, if applicable. 05/26/2024 15:08 EDT [facility] Final Diagnosis A. GALLBLADDER, CHOLECYSTECTOMY: - Focal adenomyomatous hyperplasia. 05/26/2024 15:08 T [facility] Attestation There was significant resident/fellow involvement in the diagnostic evaluation of this case. By the signature below, the attending physician certifies that they have personally conducted a gross and/or microscopic examination of the described specimens and rendered or confirmed the above diagnosis. 05/26/2024 15:08 [facility] at 1508 Clinical History Gallbladder disease 05/26/2024 15:08 [facility] Gross Description A. Received in [...] identified within the specimen or specimen container. Retail Account Manager sections to include the inked cystic duct margin are submitted in A1. CALEB MERRITT([facility]) 05/21/2024 10:37 05/26/2024 15:08 EDT [facility] Resident/Rashad w: Karlos Licona DO 05/26/2024 15:08 EDT [facility] Performing Lab [facility] 05/26/2024 15:08 T [facility] Scanned Images 05/26/2024 15:08 T [facility] Tissue GALLBLADDER STRUCTURE / Unknown 05/20/2024 14:40 EDT 05/21/2024 9:35 EDT Gabriela Gramajo DO PATHOLOGY ORDERABLES [facility] [address] [place] [id number] * POCT US ED BILIARY (05/14/2024 10:39 EDT) Anatomical Region Laterality Modality Other 05/14/2024 10:3 9 EDT Narrative 05/14/2024 13:42 EDT Study Date and Time: 2024-05-14 10:39 Study Author: Jose VÁZQUEZ Faculty Kanchan Biliary POCUS [facility]: Indications: ?Select all that apply: Abdominal Pain ?Other: Views Obtained & Images Saved: ?Select all that apply: Gallbladder Long [place], Gallbladder Short [place] ?Additional Images Saved:: Findings: ?Gallstone(s): Present ?If gallstone(s) present: Single ?Gallbladder Wall: Normal ?GB Wall thickness (cm): ?Pericholecystic Fluid: Absent ?Sonographic Richardson's sign: Absent ?Biliary sludge: Absent ?Common Bile Duct: Non-Dilated ?CBD diameter (mm): ?Other GB findings (e.g. polyps): Interpretation: ?Select all that apply: Cholelithiasis without sonographic evidence of cholecystitis ?Other: Small stone near neck of gall bladder Confirmatory Study: ?What confirmatory study was performed?: No additional imaging ordered ?Confirmatory study findings/comments:: Signed by Jose VÁZQUEZ Faculty Kanchan on 2024-05-14 13:42 Procedure Note Jose Hemphill MD - 05/14/2024 Study Date and Time: 2024-05-14 10:39 Study Author: Jose VÁZQUEZ Faculty Kanchan Biliary [facility]: Indications: Select all that apply: Abdominal Pain Other: Views Obtained & Images Saved: Select all that apply: Gallbladder Long [place], Gallbladder Short [place] Additional Images Saved:: Findings: Gallstone(s): Present If gallstone(s) present: Single Gallbladder Wall: Normal GB Wall thickness (cm): Pericholecystic Fluid: Absent Sonographic Richardson's sign: Absent Biliary sludge: Absent Common Bile Duct: Non-Dilated CBD diameter (mm): Other GB findings (e.g. polyps): Interpretation: Select all that apply: Cholelithiasis without sonographic evidence ofcholecystitis Other: Small stone near neck of gall bladder Confirmatory Study: What confirmatory study was performed?: No additional imagingordered Confirmatory study findings/comments:: Signed by Jose Faculty Kanchan on 2024-05-14 13:42 Jose Hemphill MD IMG POCT US ORD ERABLES * (ABNORMAL) COMPLETE BLOOD COUNT AND DIFFERENTIAL (05/14/2024 9:12 EDT) WBC 6.53 4.00 - 10.40 K/cmm 05/14/2024 9:30 [facility] RBC 4.98 4.36 - 5.78 M/cmm 05/14/2024 9:30 [facility] Hemoglobin 15.2 13.8 - 17.3 g/dL 05/14/2024 9:30 [facility] HCT 43.5 39.5 - 50.2 % 05/14/2024 9:30 [facility] MCV 87 81 - 95 fL 05/14/2024 9:30 [facility] MCH 30.5 27.6 - 33.0 pg 05/14/2024 9:30 [facility] MCHC 34.9 32.8 - 36.4 g/dL 05/14/2024 9:30 [facility] RDW-CV 12.6 <14.2 % 05/14/2024 9:30 [facility] RDW-SD 40.2 <46.0 fl 05/14/2024 9:30 [facility] PLT 213 141 - 377 K/cmm 05/14/2024 9:30 [facility] MPV 9.2(L) 9.5 - 12.7 fL 05/14/2024 9:30 [facility] % Neutrophils 46.1 % 05/14/2024 9:30 [facility] % Lymphocytes 40.1 % 05/14/2024 9:30 [facility] % Monocytes 8.1 % 05/14/2024 9:30 EDT [facility] % Eosinophils 4.4 % 05/14/2024 9:30 T [facility] % Basophils 1.1 % 05/14/2024 9:30 [facility] % Immature Grans 0.2 % 05/14/20 9:30 [facility] Absolute Neutrophils 3.01 2.20 - 8.85 K/cmm 05/14/2024 9:30 T [facility] Absolute Lymphocytes 2.62 1.09 - 3.30 K/cmm 05/14/2024 9:30 [facility] Absolute Monocytes 0.53 0.10 - 0.80 K/cmm 05/14/2024 9:30 [facility] Absolute Eosinophils 0.29 0.03 - 0.61 K/cmm 05/14/2024 9:30 [facility] ABS Basophils 0.07 0.01 - 0.11 K/cmm 05/14/2024 9:30 EDT [facility] Absolute Immature Grans 0.01 0.00 - 0.06 K/cmm 05/14/2024 9:30 T [facility] Type of Differential: Auto 05/14/2024 9:30 [facility] Blood VENOUS BLOOD / Unknown Venipuncture / Unknown 05/14/2024 9:12 EDT 05/14/2024 9:20 EDT Serafin Caldwell MD PACKAGES & DNA PROBE ORDERABLES [facility] [address] [place] [address] * COMPREHENSIVE METABOLIC PANEL (CMP) (05/14/2024 9:12 EDT) Sodium 141 136 - 145 mmol/L 05/14/2024 9:36 T [facility] Potassium 4.3 3.5 - 5.0 mmol/L 05/14/2024 9:36 [facility] Chloride 103 96 - 110 mmol/L 05/14/2024 9:36 [facility] CO2 Total 26 22 - 32 mmol/L 05/14/2024 9:36 [facility] Glucose 86 70 - 99 mg/dl 05/14/2024 9:36 [facility] BUN 13 10 - 26 mg/dL 05/14/2024 9:36 [facility] Creatinine 0.73 0.66 - 1.25 mg/dL 05/14/2024 9:36 [facility] eGFR 134 >60 mL/min/1.7 3m2 05/14/2024 9:36 [facility] Total Protein 7.2 6.3 - 8.2 g/dL 05/14/2024 9:36 [facility] Albumin 4.7 3.4 - 4.9 g/dL 05/14/2024 9:36 [facility] Alkaline Phosphatase 52 38 - 126 U/L 05/14/2024 9:36 [facility] AST 31 15 - 46 U/L 05/14/2024 9:36 [facility] ALT 18 <50 U/L 05/14/2024 9:36 [facility] Bilirubin, Total 0.8 <1.4 mg/dL 05/14/20 9:36 [facility] Calcium 9.9 8.5 - 10.5 mg/dL 05/14/2024 9:36 [facility] Albumin/Globulin Ratio 1.9 1.0 - 2.5 05/14/2024 9:36 [facility] Anion Gap 12 5 - 14 mmol/L 05/14/2024 9:36 [facility] Blood VENOUS BLOOD / Unknown Venipuncture / Unknown 05/14/2024 9:12 EDT 05/14/2024 9:19 EDT Serafin Caldwell MD CHEMISTRY & BLOOD GA S ORDERABLES [facility] [address] [place] [address] * H. PYLORI ANTIGEN (04/11/2024 10:28 EDT) H. Pylori Negative Negative 04/15/2024 13:38 EDT [facility] Comment:Indicates the absenc e of H. pylori stool antigen, (or the level of antigen is below that which can be detected by the assay) Feces SPECIMEN FROM RECTUM / Unknown 04/11/2024 10:28 EDT 04/11/2024 17:24 EDT Narrative [facility] - 04/15/2024 13:38 EDT New Liaison XL testing method used as of 07/30/2023 Provider Outr Resulting Lab MICROBIOLOGY - GENERAL ORDERABLES Performing Organization Address [facility]/State/ZIP Co de Phone Number [facility] [address] [place], [place] [address] from Last 3 Months Laz Frank Personal/Family Self [address] [facility] [place] [address] Laz Frank Personal/Family Self [address] [facility] [place] [address] Laz Frank Personal/Family Self [address] [facility] [place] [address] Laz Frank Personal/Family Self [address] [facility] [place] [address] Laz Frank Personal/Family Self [address] [facility] [place] [address] Laz Frank Personal/Family Self [address] [place] [address] [place] [address] Laz Frank Personal/Family Self [address] [place] [address] [place] [address] Care Teams Staffing Manager Relationship Specialty Start Date End Date Amos, Ruth Paulino [address] [place] [id number] PCP - General Family Medicine - Primary Care 05/14/24
--- OUTSIDE RECORDS SUMMARY | 2024-05-27 12:41 | XMS_ITS | Clinical Summary ---
Author Organization [facility] Address [address] [place] [address] Care Team Providers Care Under Water Assistant Name Role Phone Ruth Trinidad Primary Care Provider [phone] Allergies No known active allergies Medications No known medications Encounters Date Type Department Care Team Description 05/21/2024 Lab Requisition [facility] Pathology & Laboratory [address] [address] Gabriela Gramajo DO Encounter for other general examination 05/14/2024 8:25 EDT - 05/14/2024 11:38 EDT Emergency [facility] Emergency Department - [address] [address] Serafin Caldwell MD Rectal bleeding (Primary Dx); Calculus of gallbladder without cholecystitis without obstruction Discharge Disposition: Home or Self Care 05/14/2024 Travel 05/13/2024 Lab Requisition [facility] Pathology & Laboratory Medicine [address] [address] Reece Perales MD Nausea with vomiting, unspecified; Melena; Other specified diseases of anus and rectum 04/11/2024 Lab Requisition [facility] Pathology & Laboratory [address] [address] Outr Resulting Lab, Provider from Last 3 Months Surgical History Surgery Date Site/Laterality Comments COLONOSCOPY Medical History Medical History Date Comments Anal fissure Social History Tobacco Use Types Packs/Day Years [...] 8:57 EDT Sexual Orientation Not on file Obstetrics History Growth Chart Information Age Height Weight Iundha-cpz-drud th Percentile BMI Percentile Head Circum Head Circum Percentile Date 18 years 175.3 cm (5' 9) 71.7 kg (158 lb) 57.54%* 2023 17 years 172.7 cm (5' 8) 68 kg (150 lb) 58.56%* 2022 * FORMERLY NAMED [facility] (Boys, 2-20 Years) Last Filed Vital Signs Vital Sign Reading Time Taken Comments Blood Pressure 123/84 05/14/2024 1100 EDT Pulse 61 05/14/2024 1100 EDT Temperature 36.5 ??C (97.7 ??F) 05/14/2024 1100 EDT Respiratory Rate 16 05/14/2024 1100 EDT Oxygen Saturation 99% 05/14/2024 1100 EDT Inhaled Oxygen Concentration - - Weight 71.7 kg (158 lb) 05/14/2024 0824 EDT Height 175.3 cm (5' 9) 05/14/2024 0824 EDT Body Mass Index 23.33 05/14/2024 0824 EDT Plan of Treatment Health Maintenance Due Date Last Done Comments Hepatitis C Screen 2004 COVID-19 Vaccine ( - 2022-24 season) 2023 Hepatitis B Vaccine (1 of 3 - 19+ 3-dose series) 11/29 Procedures Procedure Name Priority Date/Time Associated Diagnosis [...] explore management options, if applicable. 05/26/2024 15:08 [facility] Final Diagnosis A. GALLBLADDER, CHOLECYSTECTOMY: - Focal adenomyomatous hyperplasia. 05/26/2024 15:08 [facility] Attestation There was significant resident/fellow involvement in the diagnostic evaluation of this case. By the signature below, the attending physician certifies that they have personally conducted a gross and/or microscopic examination of the described specimens and rendered or confirmed the above diagnosis. 05/26/2024 15:08 [facility] at 1508 Clinical History Gallbladder disease 05/26/2024 15:08 [facility] Gross Description A. [...] identified within the specimen or specimen container. Eligibility Specialist sections to include the inked cystic duct margin are submitted in A1. CALEB MERRITT([facility]) 05/21/2024 10:37 05/26/2024 15:08 [facility] Resident/Rashad w: Karlos Licona DO 05/26/2024 15:08 EDT [facility] Performing Lab [facility] 05/26/2024 15:08 EDT [facility] Scanned Images 05/26/2024 15:08 EDT [facility] Tissue GALLBLADDER STRUCTURE / Unknown 05/20/2024 14:40 EDT 05/21/2024 9:35 EDT Gabriela Gramajo DO PATHOLOGY ORDERABLES [facility] [address] [place] [address] * POCT US ED BILIARY (05/14/2024 10:39 EDT) Anatomical Region Laterality Modality Other 05/14/2024 10:3 9 EDT Narrative 05/14/2024 13:42 EDT Study Date and Time: 2024-05-14 10:39 Study Author: Jose VÁZQUEZ US Faculty Kanchan Biliary [facility]: Indications: ?Select all that apply: Abdominal Pain ?Other: Views Obtained & Images Saved: ?Select all that apply: Gallbladder Long [place], Gallbladder Short [place] ?Additional Images Saved:: Findings: ?Gallstone(s): Present ?If [...] ?Confirmatory study findings/comments:: Signed by Jose VÁZQUEZ US Bárbara Hemphill on 2024-05-14 13:42 Procedure Note Jose Hemphill MD - 05/14/2024 Study Date and Time: 2024-05-14 10:39 Study Author: Jose VÁZQUEZ US Bárbara Hemphill Biliary [facility]: Indications: Select all that apply: Abdominal Pain Other: Views Obtained & Images Saved: Select all that apply: Gallbladder Long [place], Gallbladder Short [place] Additional Images Saved:: Findings: Gallstone(s): Present If [...] imagingordered Confirmatory study findings/comments:: Signed by Jose VÁZQUEZ US Bárbara Hemphill on 2024-05-14 13:42 Jose Hemphill MD IMG POCT US ORD ERABLES * (ABNORMAL) COMPLETE BLOOD COUNT AND DIFFERENTIAL (05/14/2024 9:12 EDT) WBC 6.53 4.00 - 10.40 K/cmm 05/14/2024 9:30 [facility] RBC 4.98 4.36 - 5.78 M/cmm 05/14/2024 9:30 [facility] Hemoglobin 15.2 13.8 - 17.3 g/dL 05/14/2024 9:30 [facility] HCT 43.5 39.5 - 50.2 % 05/14/2024 9:30 [facility] MCV 87 81 - 95 fL 05/14/2024 9:30 [facility] MCH 30.5 27.6 - 33.0 pg 05/14/2024 9:30 [facility] MCHC 34.9 32.8 - 36.4 g/dL 05/14/2024 9:30 [facility] RDW-CV 12.6 <14.2 % 05/14/2024 9:30 [facility] RDW-SD 40.2 <46.0 fl 05/14/2024 9:30 [facility] PLT 213 141 - 377 K/cmm 05/14/2024 9:30 [facility] MPV 9.2(L) 9.5 - 12.7 fL 05/14/2024 9:30 [facility] % Neutrophils 46.1 % 05/14/2024 9:30 [facility] % Lymphocytes 40.1 % 05/14/2024 9:30 [facility] % Monocytes 8.1 % 05/14/2024 9:30 [facility] % Eosinophils 4.4 % 05/14/2024 9:30 [facility] % Basophils 1.1 % 05/14/2024 9:30 [facility] % Immature Grans 0.2 % 05/14/20 9:30 [facility] Absolute Neutrophils 3.01 2.20 - 8.85 K/cmm 05/14/2024 9:30 [facility] Absolute Lymphocytes 2.62 1.09 - 3.30 K/cmm 05/14/2024 9:30 [facility] Absolute Monocytes 0.53 0.10 - 0.80 K/cmm 05/14/2024 9:30 [facility] Absolute Eosinophils 0.29 0.03 - 0.61 K/cmm 05/14/2024 9:30 [facility] ABS Basophils 0.07 0.01 - 0.11 K/cmm 05/14/2024 9:30 [facility] Absolute Immature Grans 0.01 0.00 - 0.06 K/cmm 05/14/2024 9:30 [facility] Type of Differential: Auto 05/14/2024 9:30 [facility] Blood VENOUS BLOOD / Unknown Venipuncture / Unknown 05/14/2024 9:12 EDT 05/14/2024 9:20 EDT Serafin Caldwell MD PACKAGES & DNA PROBE ORDERABLES [facility] [address] [place] [address] * COMPREHENSIVE METABOLIC PANEL (CMP) (05/14/2024 9:12 EDT) Sodium 141 136 - 145 mmol/L 05/14/2024 9:36 [facility] Potassium 4.3 3.5 - 5.0 mmol/L 05/14/2024 9:36 [facility] Chloride 103 96 - 110 mmol/L 05/14/2024 9:36 [facility] CO2 Total 26 22 - 32 mmol/L 05/14/2024 9:36 [facility] Glucose 86 70 - 99 mg/dl 05/14/2024 9:36 [facility] BUN 13 10 - 26 mg/dL 05/14/2024 9:36 [facility] Creatinine 0.73 0.66 - 1.25 mg/dL 05/14/2024 9:36 [facility] eGFR 134 >60 mL/min/1.7 3m2 05/14/2024 9:36 [facility] Total Protein 7.2 6.3 - 8.2 g/dL 05/14/2024 9:36 [facility] Albumin 4.7 3.4 - 4.9 g/dL 05/14/2024 9:36 [facility] Alkaline Phosphatase 52 38 - 126 U/L 05/14/2024 9:36 [facility] AST 31 15 - 46 U/L 05/14/2024 9:36 [facility] ALT 18 <50 U/L 05/14/2024 9:36 [facility] Bilirubin, Total 0.8 <1.4 mg/dL 05/14/20 9:36 [facility] Calcium 9.9 8.5 - 10.5 mg/dL 05/14/2024 9:36 EDT [facility] Albumin/Globulin Ratio 1.9 1.0 - 2.5 05/14/2024 9:36 EDT [facility] Anion Gap 12 5 - 14 mmol/L 05/14/2024 9:36 EDT [facility] Blood VENOUS BLOOD / Unknown Venipuncture / Unknown 05/14/2024 9:12 EDT 05/14/2024 9:19 EDT Serafin Caldwell MD CHEMISTRY & BLOOD GA S ORDERABLES Performing Organization Address [facility] [address]/ZIP Co de Phone Number [facility] [address] [place] [address] * H. PYLORI ANTIGEN (04/11/2024 10:28 EDT) H. Pylori Negative Negative 04/15/2024 13:38 EDT [facility] Comment:Indicates the absenc e of H. pylori stool antigen, (or the level of antigen is below that which can be detected by the assay) Feces SPECIMEN FROM RECTUM / Unknown 04/11/2024 10:28 EDT 04/11/2024 17:24 EDT Narrative [facility] - 04/15/2024 13:38 EDT New Liaison XL testing method used as of 07/30/2023 Provider Outr Resulting Lab MICROBIOLOGY - GENERAL ORDERABLES [facility] [address] [place] [address] from Last 3 Months Laz Frank R Personal/Family Self [address] [facility] [place] [address] Laz Frank Personal/Family Self [address] [facility] [place] [address] Laz Frank Personal/Family Self [address] [facility] [place] [address] Laz Frank Personal/Family Self [address] [facility] [place] [address] Laz Frank Personal/Family Self [address] [facility] [place] [address] Laz Frank Personal/Family Self [address] [facility] [place] [address] Care Teams Under Water Assistant Relationship Specialty Start Date End Date Amos, Ruth Paulino [address] [place] [address] [place] [address] PCP - General Family Medicine - Primary Care 05/14/24
--- OUTSIDE RECORDS SUMMARY | 2024-05-27 12:41 | XMS_ITS | Encounter Summary ---
Author Organization [facility] Address [address] [place] [address] Care Team Providers Care Aircraft Instrument Repairer Name Role Phone Ruth Trinidad Primary Care Provider [phone] Reason for Visit * Reason Comments Rectal Bleeding Patient reports that two days ago he had a colonoscopy and endoscopy. Patient states that he is having dark red blood, and red blood in his stool. Patient reports one bloody stool. He reports he was advised he has a fissure tear in his colon. Pt is 7/10 abdominal pain. Last bm was at 07:30 Encounter Details Date Type Department Care Team (Late st Contact Info) Description 05/14/2024 8:25 EDT - 05/14/2024 11:38 EDT Emergency [facility] Emergency Department - [address] [id number] Serafin Caldwell MD [address] [facility], [address] [place] [address] Rectal bleeding (Primary Dx); Calculus of gallbladder without cholecystitis without obstruction Discharge Disposition: Home or Self Care Social [...] 16 05/14/2024 1100 EDT Oxygen Saturation 99% 05/14/20241099 EDT Inhaled Oxygen Concentration - - Weight 71.7 kg (158 lb) 05/14/2024 08 EDT Height 175.3 cm (5' 9) 05/14/2024823 EDT Body Mass Index 23.33 05/14/2024823 EDT documented in this encounter Discharge Instructions * Discharge Instructions* Serafin aCldwell MD - 05/14/2024 11:21 EDT You were seen in the emergency department for rectal bleeding and abdominal pain. We performed labs, which showed no abnormalities requiring urgent intervention. We performed an ultrasound, which showed a gallstone in your gallbladder. This may be the explanation for your abdominal pain. Please discuss this with your primary care provider or audio visual specialist within the next week. You may need a referral to a general surgeon to have your gallbladder removed. In the meantime, please avoid fatty foods, eat small, frequent meals, and return to the ED if you develop worsening abdominal pain, nausea, or vomiting. documented in this encounter Discharge Disposition Disposition Code Departure Means Destination Comment s Home or Self Longterm documented in this encounter ED Notes * Mónica Vargas RN - 05/14/2024 1137 EDT Pt acknowledged discharge instructions. A/Ox3 unlaboured breathing. VSS. Ambulated off unit. * Mónica Vargas RN - 05/14/2024 1100 EDT EM MD at bedside. Reports continued abdominal pain no acute distress. * Mónica Vargas RN - 05/14/2024 0913 EDT RN and EM at bedside for anal exam. * Serafin Caldwell MD - 05/14/2024 0819 EDT Emergency Department Visit Medical Decision Making Relevant Data as of 05/14/242106May 14, 2024 1131 18-year-old male, history of chronic abdominal pain, history of rectal bleeding, presenting with rectal bleeding. Patient had endoscopy and colonoscopy 2 days prior to presentation to evaluate his rectal bleeding.Says he was told that there were no colonic abnormalities but that he had anal fissures. Had abdominal pain after the procedure. States he returned to the hospital where the procedure was performed, was seen in the ED, was discharged after being evaluated by a surgeon there, without any imaging performed. Today, is continuing to have abdominal pain. Describes this pain as intermittent, crampy/stabbing, worst in the right upper quadrant. Has been able to eat and drink, no nausea/vomiting. Has been passing gas and has had several bowel movements since the procedure. Presenting this morning because he had a single episode of bloody stool at approximately 7:45 am, became concerned, decided to present to the closest ED. On exam, has mild RUQ TTP without rebound or guarding. Considered the possibility of perforation secondary to colonoscopy, but patient is well-appearing, afebrile, does not have peritoneal signs on abdominal exam, has been able to tolerate p.o. Considered the possibility of appendicitis, but pain is localized to the RUQ. Considered the possibility of biliary pathology given location of pain. Ultrasound showed a single gallstone in gallbladder neck. No evidence of cholecystitis on ultrasound, including no gallbladder wall thickening and no pericholecystic fluid. Labs were notable for normal white count, normal hemoglobin. Normal LFTs. Overall, symptoms most consistent with rectal bleeding due to known anal fissure and right upper quadrant pain due to symptomatic cholelithiasis. Discharged patient with instructions to follow-up with PCP soon as possible to discuss possible elective cholecystectomy. [RI] Relevant Data User Index [RI] Serfain Caldwell MD In summary, Laz Frank is a 18 year old male with a history of chronic heartburn who presents to the ED for rectal bleeding and acutely worse abdominal pain in the setting of a colonoscopy 2 daysago and 2 months of abdominal pain, nausea, and emesis. On exam, the patient has diffuse abdominal tenderness to palpation, most severe in the right upper quadrant, without rebound or guarding. No external hemorrhoids or anal fissures visualized. Patient had labs that were reviewed independently by myself, within normal limits. Imaging (independent interpretation) of the abdominal US: Single Gallstone present. No wall thickening or pericholecystic fluid present that would be concerning for acute cholecystitis. Medical Decision Making Problems Addressed: Calculus of gallbladder without cholecystitis without obstruction: acute illness or injury Rectal bleeding: acute illness or injury Final diagnoses: None Disposition: Discharged Chief complaint: Rectal Bleeding HPI Laz Frank is a 18 y.o. male with a history of chronic upper abdominal pain who presents to the ED after an episode of rectal bleeding this morning, in the setting of a recent colonoscopy and endoscopy on 05/12. The patient reports that he has been having intermittent 7/10 shooting right upper quadrant abdominal pain, with associated nausea and vomiting, for a few months. The pain sometimes radiates to his back and is associated with eating. He has presented to the ED for these symptoms, andhad a CT without any formal diagnosis. He reports that he began to notice blood in his stool about 1 month ago. He then had a colonoscopy 2 days ago, where he was diagnosed with an anal fissure. Since the colonoscopy, he has been having the same chronic abdominal pain that he has had for months, though slightly more severe. He endorses 3 bowel movements in the past 24 hours. This morning, he had an episode of diarrhea with dark red blood around 0740, which prompted him to present to the ED. The patient lives in [place], [place], and is currently in [place] for work. History was provided by: Patient Records reviewed include: None Patient's pertinent PMH, FH, SH were reviewed and edited as necessary. Nursing notes reviewed. A medical screening exam was performed. Physical Exam BP 117/71 (BP Cuff Location: Right arm) Pulse 59 Temp 36.8 ??C (98.2 ??F) (Oral) Resp 14 Ht175.3 cm (69) Wt 71.7 kg (158 lb) SpO2 100% BMI 23.33 kg/m?? Physical Exam Constitutional: General: He is not in acute distress. HENT: Head: Atraumatic. Pulmonary: Effort: Pulmonary effort is normal. Abdominal: Tenderness: There is abdominal tenderness. Comments: RUQ TTP without rebound or guarding. Negative Richardson's sign. Otherwise no abdominal TTP. Genitourinary: Comments: Rectal exam chaperoned by SEYMOUR Sandoval. No anal fissures or hemorrhoids visualized. Procedures Procedures This documentation is recorded by Anna Rosenthal acting as Scribe under the direction and presence of Serafin Caldwell MD. Serafin Caldwell MD: I personally performed the services recorded by the scribe in my presence. I confirm the scribe's documentation has been reviewed by me to accurately and completely record my work, treatment, procedures, and medical decision making. documented in this encounter Plan of Treatment Not on file documented as of this encounter Procedures Procedure Name Priority Date/Time Associated Diagnosis Comments POCT US ED BILIARY 05/14/2024 10 :39 EDT COMPLETE BLOOD COUNT AND DIFFERENTIAL STAT 05/14/2024 9:12 EDT COMPREHENSIVE METABOLIC PANEL (CMP) STAT 05/14/2024 9:12 EDT documented in this encounter Results * POCT US ED BILIARY (05/14/2024 10:39 EDT) Anatomical Region Laterality Modality Other 05/14/2024 10:3 9 EDT Narrative 05/14/2024 13:42 EDT Study Date and Time: 2024-05-14 10:39 Study Author: Jose VÁZQUEZ US Faculty [facility] Biliary POCUS [facility]: Indications: ?Select all that apply: Abdominal Pain ?Other: Views Obtained & Images Saved: ?Select all that apply: Gallbladder Long [place], Gallbladder Short [place] ?Additional Images Saved:: Findings: ?Gallstone(s): Present ?If [...] ordered ?Confirmatory study findings/comments:: Signed by Jose [facility] Bárbara Hemphill on 2024-05-14 13:42 Procedure Note Jose Hemphill MD - 05/14/2024 Study Date and Time: 2024-05-14 10:39 Study Author: Jose VÁZQUEZ Bárbara Hemphill Biliary POCUS [facility]: Indications: Select all that apply: Abdominal Pain Other: Views Obtained & Images Saved: Select all that apply: Gallbladder Long [place], Gallbladder Short [place] Additional Images Saved:: Findings: Gallstone(s): Present If [...] imagingordered Confirmatory study findings/comments:: Signed by Jose [facility] Bárbara Hemphill on 2024-05-14 13:42 Jose Hemphill MD IMG POCT US ORD ERABLES * COMPREHENSIVE METABOLIC PANEL (CMP) (05/14/2024 9:12 EDT) Sodium 141 136 - 145 mmol/L 05/14/2024 9:36 EDT [facility] Potassium 4.3 3.5 - 5.0 mmol/L 05/14/2024 9:36 [facility] Chloride 103 96 - 110 mmol/L 05/14/2024 9:36 [facility] CO2 Total 26 22 - 32 mmol/L 05/14/2024 9:36 [facility] Glucose 86 70 - 99 mg/dl 05/14/2024 9:36 [facility] BUN 13 10 - 26 mg/dL 05/14/2024 9:36 [facility] Creatinine 0.73 0.66 - 1.25 mg/dL 05/14/2024 9:36 [facility] eGFR 134 >60 mL/min/1.7 3m2 05/14/2024 9:36 [facility] Total Protein 7.2 6.3 - 8.2 g/dL 05/14/2024 9:36 [facility] Albumin 4.7 3.4 - 4.9 g/dL 05/14/2024 9:36 [facility] Alkaline Phosphatase 52 38 - 126 U/L 05/14/2024 9:36 [facility] AST 31 15 - 46 U/L 05/14/2024 9:36 [facility] ALT 18 <50 U/L 05/14/2024 9:36 [facility] Bilirubin, Total 0.8 <1.4 mg/dL 05/14/20 9:36 [facility] Calcium 9.9 8.5 - 10.5 mg/dL 05/14/2024 9:36 [facility] Albumin/Globulin Ratio 1.9 1.0 - 2.5 05/14/2024 9:36 [facility] Anion Gap 12 5 - 14 mmol/L 05/14/2024 9:36 [facility] Blood VENOUS BLOOD / Unknown Venipuncture / Unknown 05/14/2024 9:12 EDT 05/14/2024 9:19 EDT Serafin Caldwell MD CHEMISTRY & BLOOD GA S ORDERABLES [facility] [address] [place] [address] * (ABNORMAL) COMPLETE BLOOD COUNT AND DIFFERENTIAL (05/14/2024 9:12 EDT) WBC 6.53 4.00 - 10.40 K/cmm 05/14/2024 9:30 [facility] RBC 4.98 4.36 - 5.78 M/cmm 05/14/2024 9:30 [facility] Hemoglobin 15.2 13.8 - 17.3 g/dL 05/14/2024 9:30 [facility] HCT 43.5 39.5 - 50.2 % 05/14/2024 9:30 [facility] MCV 87 81 - 95 fL 05/14/2024 9:30 [facility] MCH 30.5 27.6 - 33.0 pg 05/14/2024 9:30 [facility] MCHC 34.9 32.8 - 36.4 g/dL 05/14/2024 9:30 [facility] RDW-CV 12.6 <14.2 % 05/14/2024 9:30 [facility] RDW-SD 40.2 <46.0 fl 05/14/2024 9:30 [facility] PLT 213 141 - 377 K/cmm 05/14/2024 9:30 [facility] MPV 9.2(L) 9.5 - 12.7 fL 05/14/2024 9:30 [facility] % Neutrophils 46.1 % 05/14/2024 9:30 [facility] % Lymphocytes 40.1 % 05/14/2024 9:30 [facility] % Monocytes 8.1 % 05/14/2024 9:30 [facility] % Eosinophils 4.4 % 05/14/2024 9:30 [facility] % Basophils 1.1 % 05/14/2024 9:30 [facility] % Immature Grans 0.2 % 05/14/20 9:30 EDT [facility] Absolute Neutrophils 3.01 2.20 - 8.85 K/cmm 05/14/2024 9:30 EDT [facility] Absolute Lymphocytes 2.62 1.09 - 3.30 K/cmm 05/14/2024 9:30 EDT [facility] Absolute Monocytes 0.53 0.10 - 0.80 K/cmm 05/14/2024 9:30 EDT [facility] Absolute Eosinophils 0.29 0.03 - 0.61 K/cmm 05/14/2024 9:30 EDT [facility] ABS Basophils 0.07 0.01 - 0.11 K/cmm 05/14/2024 9:30 EDT [facility] Absolute Immature Grans 0.01 0.00 - 0.06 K/cmm 05/14/2024 9:30 EDT [facility] Type of Differential: Auto 05/14/2024 9:30 EDT [facility] Blood VENOUS BLOOD / Unknown Venipuncture / Unknown 05/14/2024 9:12 EDT 05/14/2024 9:20 EDT Serafin Caldwell MD PACKAGES & DNA PROBE ORDERABLES [facility] [address] [place] [address] documented in this encounter Visit Diagnoses Diagnosis Rectal bleeding- Primary Hemorrhage of rectum and anus Calculus of gallbladder without cholecystitis without obstruction Calculus of gallbladder without mention of cholecystitis or obstruction documented in this encounter Care Teams Aircraft Instrument Repairer Relationship Specialty Start Date End Date Amos, Ruth Paulino [address] [place] [id number] PCP - General Family Medicine - Primary Care 05/14/24 documented as of this encounter
== END 2024-05-27 13:23 | disposition left against medical advice (07) ==
LOC: ER 12:39
PROVIDERS: PCP Nurse Practitioner Family
DX: Z53.21 Procedure and treatment not carried out due to patient leaving prior to being seen by health care provider (principal)

== ENCOUNTER 2024-07-25 14:56 | Emergency (ER) | payer BC, SELFPAY ==
[2024-07-25 15:03] VITALS: BP 115/70; PULSE 89; RESP 16; TEMP 36.8; O2SAT 97
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
== END 2024-07-25 15:52 | disposition home or self-care (01) ==
PROVIDERS: Emergency Provider Physician Assistant; PCP Nurse Practitioner Family
DX: M25.512 Pain in left shoulder (principal); Z90.49 Acquired absence of other specified parts of digestive tract; Y04.0XXA Assault by unarmed brawl or fight, initial encounter; Y93.89 Activity, other specified; Y92.89 Other specified places as the place of occurrence of the external cause; Y99.0 Civilian activity done for income or pay
CPT/HCPCS: 99283

== ENCOUNTER 2024-07-28 08:10 | Emergency (ER) | payer BC, SELFPAY ==
[2024-07-28] VITALS (7 sets, daily range): BP systolic 122; BP diastolic 69; PULSE 46–80; RESP 11–26; TEMP 36.5; O2SAT 96–100
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
[2024-07-28 08:57] LABS: Abs Immature Grans 0.04 10^3/uL (0.0-0.06); Absolute Basophil Count 0.05 10^3/uL (0.0-0.2); Absolute Eosinophil Count 0.04 10^3/uL (0.0-0.7); Absolute Lymphocyte Count 2.76 10^3/uL (1.2-3.4); Absolute Monocyte Count 0.37 10^3/uL (0.1-0.8); Absolute Neutrophil Count 6.17 10^3/uL (1.2-6.7); Basophils % 0.5 %; Eosinophils % 0.4 %; HCT 41.4 % (40.0-50.0); HGB 14.6 g/dL (13.5-17.5); Immature Grans % 0.4 %; Lymphocytes % 29.3 %; MCH 30.3 pg (27.0-33.0); MCHC 35.3 % (32.0-36.0); MCV 86 fL (80-95); MPV 8.7 fL (8.0-11.0); Monocytes % 3.9 %; Neutrophils % 65.5 %; Platelet Count 216 10^3/uL (130-400); RBC 4.82 10^6/uL (4.36-5.78); RDW 12.9 % (11.8-14.1); RDW-SD 40.3 fL; WBC 9.43 10^3/uL (4.4-10.8)
[2024-07-28] MEDS: Ondansetron 4 MG/2 ML VIAL IVP (08:59)
[2024-07-28] MEDS: Droperidol 5 MG/2 ML VIAL 1.25 MG IVP (08:59)
[2024-07-28 09:17] LABS: ALT 41 U/L (16-63); AST 31 U/L (15-37); Albumin 4.4 g/dL (3.4-5.0); Alkaline Phosphatase 90 U/L (46-116); Anion Gap 11.4 mmol/L (3-11); BUN 12 mg/dL (7-18); CO2 23.6 mmol/L (21.0-32.0); CREATININE 0.9 mg/dL (0.70-1.30); Chloride 107 mmol/L (98-107); Estimated GFR 126.17 (mL/min/1.73m2); Glucose 143 mg/dL (74-106); Lipase 23 U/L (16-77); Potassium 3.9 mmol/L (3.5-5.1); Sodium 142 mmol/L (136-145); Total Protein 7.5 g/dL (6.4-8.2)
[2024-07-28 09:20] LABS: Calcium 10.4 mg/dL (8.5-10.1)
== END 2024-07-28 09:50 | disposition left against medical advice (07) ==
PROVIDERS: Emergency Provider Emergency Medicine; PCP Nurse Practitioner Family
DX: R10.9 Unspecified abdominal pain (principal); E83.52 Hypercalcemia; R73.9 Hyperglycemia, unspecified; R11.2 Nausea with vomiting, unspecified
CPT/HCPCS: 36415; 80053; 83690; 96374; 96375; 99284; 85025; J1790; J2405

== ENCOUNTER 2024-07-30 12:31 | Emergency (ER) | payer BC, SELFPAY ==
[2024-07-30 12:40] VITALS: BP 107/72; PULSE 110; RESP 20; TEMP 36.4; O2SAT 97
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
--- NOTE | 2024-07-30 13:47 | DI.CT_ITS ---
Exam(s) CT ABDOMEN PELVIS W EXAM: CT ABDOMEN PELVIS W CLINICAL HISTORY: Postop abdominal pain TECHNIQUE: Imaging Protocol: Axial computed tomography images with coronal and sagittal reformatted images were created and reviewed. CONTRAST MATERIAL: Intravenous: Omnipaque 350 Contrast volume:85 mL Oral: No COMPARISON: US US ABDOMEN LIMITED from 04/07/2024 FINDINGS: ABDOMEN: Lung Bases: Normal where visualized. Liver: Normal density. No measurable mass. Portal, Superior Mesenteric, and Splenic Veins: Unremarkable. Gallbladder and Biliary Tract: Status post cholecystectomy. No biliary ductal dilatation. There is a nonspecific small amount of fluid attenuation in the gallbladder fossa. No focal fluid collection is seen to suggest an abscess. Pancreas: Normal density, no abnormal calcifications or inflammatory process. Spleen: Normal. Adrenals: No masses seen. Kidneys: Normal size, contour and axis. No radiodense stones or obstructive uropathy. No masses seen. Abdominal Aorta: Abdominal portion non-dilated. Bowel: No obstruction or bowel wall thickening. Appendix is unremarkable. Peritoneal Cavity: There is a trace amount of free fluid in the pelvis. No free air. Lymph Nodes: Within normal limits. Bones: Within normal limits for the patient's age. Soft Tissues: Unremarkable. PELVIS: Bladder: The urinary bladder is incompletely distended limiting evaluation. No gross abnormalities i dentified. Reproductive Organs: Unremarkable as visualized. Lymph Nodes: Within normal limits. Bones: Within normal limits for the patient's age. IMPRESSION: 1. Status post cholecystectomy. No biliary ductal dilatation. No abscess is identified. 2. No acute abdominal or pelvic process. RADIATION DOSE DELIVERED: 268.16mGy.cm Total DLP DATA REPOSITORY: All CT scans at this facility are submitted to the National Radiology Data Registry (NRDR) Dose Index Registry (DIR) with the [employer] (ACR). RADIATION OPTIMIZATION: All CT scans at this facility use at least one of these dose optimization te chniques: automated exposure control; mA and/or kV adjustment per patient size (includes targeted exa ms where dose is matched to clinical indication); or iterative reconstruction.
[2024-07-30 14:01] VITALS: PULSE 68; RESP 16; TEMP 36.4; O2SAT 99
[2024-07-30 14:03] LABS: Abs Immature Grans 0.04 10^3/uL (0.0-0.06); HCT 42.2 % (40.0-50.0); HGB 14.8 g/dL (13.5-17.5); Immature Grans % 0.5 %; MCH 30.3 pg (27.0-33.0); MCHC 35.1 % (32.0-36.0); MCV 86 fL (80-95); MPV 8.5 fL (8.0-11.0); Platelet Count 227 10^3/uL (130-400); RBC 4.89 10^6/uL (4.36-5.78); RDW 12.9 % (11.8-14.1); RDW-SD 40.2 fL; WBC 7.89 10^3/uL (4.4-10.8)
[2024-07-30] MEDS: Omnipaque 350 MG/ML 500 ML BTL-Imaging package IJ (14:13)
[2024-07-30] MEDS: Normal Saline - Diluent 50 ML VIAL IJ (14:15)
[2024-07-30 14:18] LABS: ALT 41 U/L (16-63); AST 26 U/L (15-37); Albumin 4.3 g/dL (3.4-5.0); Alkaline Phosphatase 86 U/L (46-116); Anion Gap 8.2 mmol/L (3-11); BUN 12 mg/dL (7-18); CO2 26.8 mmol/L (21.0-32.0); CREATININE 0.8 mg/dL (0.70-1.30); Calcium 9.2 mg/dL (8.5-10.1); Chloride 104 mmol/L (98-107); Estimated GFR 130.74 (mL/min/1.73m2); Glucose 103 mg/dL (74-106); Sodium 139 mmol/L (136-145); Total Protein 7.4 g/dL (6.4-8.2)
[2024-07-30 14:21] LABS: Absolute Eosinophil Count 0.08 10^3/uL (0.0-0.7); Absolute Lymphocyte Count 2.52 10^3/uL (1.2-3.4); Absolute Monocyte Count 0.16 10^3/uL (0.1-0.8); Absolute Neutrophil Count 5.05 10^3/uL (1.2-6.7); Atypical Lymphocytes % 5 %
[2024-07-30 14:55] VITALS: BP 103/63; PULSE 74; RESP 16; O2SAT 97
== END 2024-07-30 14:59 | disposition home or self-care (01) ==
PROVIDERS: Emergency Provider Emergency Medicine; PCP Nurse Practitioner Family
DX: R10.31 Right lower quadrant pain (principal); R11.2 Nausea with vomiting, unspecified; Z90.49 Acquired absence of other specified parts of digestive tract; F17.290 Nicotine dependence, other tobacco product, uncomplicated
CPT/HCPCS: 36415; 80053; 99285; 74177; 85025; 99284

== ENCOUNTER 2024-07-31 05:49 | Emergency (ER) | payer BC, SELFPAY ==
[2024-07-31 05:52] VITALS: BP 149/91; PULSE 83; RESP 16; TEMP 36.4; O2SAT 100
[2024-07-31] MEDS: Droperidol 5 MG/2 ML VIAL 1.25 MG IM (06:36)
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
[2024-07-31 07:10] VITALS: BP 115/80; PULSE 88; O2SAT 97
== END 2024-07-31 07:18 | disposition home or self-care (01) ==
PROVIDERS: Emergency Provider Emergency Medicine; PCP Nurse Practitioner Family
DX: R11.2 Nausea with vomiting, unspecified (principal); F41.9 Anxiety disorder, unspecified
CPT/HCPCS: 96372; 99284; 99283; J1790

== ENCOUNTER 2024-09-19 19:20 | Emergency (ER) | payer BC, SELFPAY ==
[2024-09-19 19:26] VITALS: BP 145/77; PULSE 89; RESP 18; TEMP 36.6; O2SAT 92
[2024-09-19] MEDS: Acetaminophen 500 MG TAB 1000 MG PO (19:41)
[2024-09-19] MEDS: Ibuprofen 600 MG TAB PO (19:41)
--- NOTE | 2024-09-19 20:01 | DI.RAD_ITS ---
Exam(s) XR ANKLE RT COMPLETE EXAM: XR ANKLE RT COMPLETE CLINICAL HISTORY: lateral ankle pain. TECHNIQUE: 2D digital imaging was performed. COMPARISON: No exams were available for comparison FINDINGS: 3 views No evidence of fracture or widening the ankle mortise. Talar dome unremarkable. No osseous tarsal c oalition. No radiopaque foreign bodies. Bone density normal. IMPRESSION: No significant osseous findings in the right ankle. DATA REPOSITORY: RADIATION DOSE DELIVERED:
--- NOTE | 2024-09-19 20:01 | DI.RAD_ITS ---
Exam(s) XR FOOT RT COMPLETE EXAM: XR FOOT RT COMPLETE CLINICAL HISTORY: Fall, pain lateral foot. TECHNIQUE: 2D digital imaging was performed. COMPARISON: No exams were available for comparison FINDINGS: 3 views No evidence of fracture or diastasis of the Lisfranc joint. Great toe metatarsophalangeal joint appe ars unremarkable as do the other articulations of the foot. There is no pes planus. No calcaneal sp ur. No tarsal coalition evident. Bone density normal. No osseous lesions. IMPRESSION: No significant radiographic findings in the right foot. DATA REPOSITORY: RADIATION DOSE DELIVERED:
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
--- NOTE | 2024-09-19 20:33 | DI.VRAD_ITS ---
PROCEDURE INFORMATION: Exam: XR Right Ankle Exam date and time: 09/19/2024 7:52 PM Age: 18 years old Clinical indication: Injury or trauma; Blunt trauma; Ankle and foot; Right; Injury date: 09/19/24; Patient HX: Fall, pain lateral ankle TECHNIQUE: Imaging protocol: Radiologic exam of the right ankle. Views: 3 or more views. COMPARISON: No relevant prior studies available. FINDINGS: Bones/joints: Normal. Soft tissues: Normal. IMPRESSION: 1. No acute findings. 2. No fracture or dislocation. 3. No soft tissue gas or foreign body. Dictated and Authenticated by: Rubin Estrada MD. Ordering:JOSHUA Villareal MD
--- NOTE | 2024-09-19 20:34 | DI.VRAD_ITS ---
PROCEDURE INFORMATION: Exam: XR Right Foot Exam date and time: 09/19/2024 7:55 PM Age: 18 years old Clinical indication: Injury or trauma; Blunt trauma; Ankle and foot; Right; Injury date: 09/19/24; Patient HX: Fall, pain lateral foot TECHNIQUE: Imaging protocol: Radiologic exam of the right foot. Views: 3 or more views. COMPARISON: CR XR ANKLE RT COMPLETE 09/19/2024 7:52 PM FINDINGS: Bones/joints: Normal. Soft tissues: Normal. IMPRESSION: No acute findings. Dictated and Authenticated by: Rubin Estrada MD. Ordering:JOSHUA Villareal MD
== END 2024-09-19 20:48 | disposition home or self-care (01) ==
LOC: ER 20:46
PROVIDERS: Emergency Provider Emergency Medicine; PCP Nurse Practitioner Family
DX: S90.31XA Contusion of right foot, initial encounter (principal); M53.3 Sacrococcygeal disorders, not elsewhere classified; W10.9XXA Fall (on) (from) unspecified stairs and steps, initial encounter
CPT/HCPCS: 99284; 73610; 73630; 99283

== ENCOUNTER 2024-11-15 15:51 | Outpatient (REF) | payer BC, SELFPAY ==
[2024-11-17 12:06] LABS: Chlamydia Result Negative (Negative); GC Result Negative (Negative)
== END 2024-11-15 15:52 | disposition home or self-care (01) ==
LOC: LBN 15:51
PROVIDERS: PCP Nurse Practitioner Family; Visit Provider Nurse Practitioner Acute Care
DX: N39.0 Urinary tract infection, site not specified (principal); R82.89 Other abnormal findings on cytological and histological examination of urine
CPT/HCPCS: 87491; 87591; 87086

== ENCOUNTER 2025-01-09 21:13 | Emergency (ER) | payer BC, SELFPAY ==
[2025-01-09 21:19] VITALS: BP 133/80; PULSE 77; RESP 15; TEMP 36.9
[2025-01-09 21:44] LABS: Bilirubin Small (Negative); Blood Negative (Negative); Clarity Clear (Clear); Glucose Negative (Negative); Ketones Negative (Negative); Leukocyte Esterase Negative (Negative); Nitrite Negative (Negative); Specific Gravity >= 1.030 (1.005-1.025); Urobilinogen 0.2 mg/dL (Up to 0.2); pH 5.5 (5-8)
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
== END 2025-01-09 22:08 | disposition home or self-care (01) ==
PROVIDERS: Emergency Provider Registered Nurse Emergency; PCP Nurse Practitioner Family
DX: N50.811 Right testicular pain (principal)
CPT/HCPCS: 99282; 81003; 99283

== ENCOUNTER 2025-01-12 14:59 | Emergency (ER) | payer BC, SELFPAY ==
[2025-01-12 15:01] VITALS: BP 119/78; PULSE 67; RESP 18; TEMP 36.6; O2SAT 99
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
== END 2025-01-12 15:50 | disposition home or self-care (01) ==
PROVIDERS: Emergency Provider Emergency Medicine; PCP Nurse Practitioner Family
DX: I86.1 Scrotal varices (principal)
CPT/HCPCS: 99282; 99283

== ENCOUNTER 2025-01-14 19:22 | Emergency (ER) | payer BC, SELFPAY ==
[2025-01-14 19:28] VITALS: BP 127/90; PULSE 81; RESP 20; TEMP 36.8; O2SAT 98
--- NOTE | 2025-01-14 19:45 | DI.CT_ITS ---
Exam(s) CT ABDOMEN PELVIS W EXAM: CT ABDOMEN PELVIS W CLINICAL HISTORY: rlq and r flank pain, eval for stone or appe. TECHNIQUE: Imaging Protocol: Axial computed tomography images with coronal and sagittal reformatted images were created and reviewed CONTRAST MATERIAL: Intravenous: Omnipaque 350 Contrast volume:75 ml Oral: no COMPARISON: CT CT ABDOMEN PELVIS W from 07/30/2024 FINDINGS: ABDOMEN and PELVIS: The exam is somewhat limited by paucity of intra-abdominal fat. Lung Bases: No acute findings. Liver: Normal density. No suspicious mass. Gallbladder and biliary tract: Cholecystectomy. No biliary dilation. Pancreas: Normal density. No abnormal calcifications or inflammatory process. No evidence of mass. Spleen: Normal. Kidneys: Normal size, contour and axis. No radiodense stones. No obstructive uropathy. No suspicious masses seen. Adrenal glands: No masses seen. Vasculature: Abdominal aorta non-dilated. Soft tissues: Unremarkable. Bladder: Nearly empty peer no gross wall thickening. No calculi.No focal mass. Bowel: No obstruction. No bowel wall thickening. Appendix normal. Peritoneal cavity: No trace amount of fluid in the low pelvis. This appears unchanged from the prior exam. No focal collection. No mesenteric inflammatory response. No free air. Bones: Unremarkable for age. Reproductive organs: Prostate appears mildly enlarged for the patient's age. There are dilated pelvic vessels bilaterally, greater on the left. The seminal vesicles are also prominent. The appearance ap pears unchanged from the prior exam. Lymph nodes: No pathologically enlarged lymph nodes. IMPRESSION:: No evidence of appendicitis or renal calculi. Mildly enlarged prostate and seminal vesicles and trace amount fluid in the pelvis. Enlargement of pe lvic veins the findings may indicate inflammation of the prostate and seminal vesicles. Findings martin ear similar to prior exam. Clinical correlation recommended. RADIATION DOSE DELIVERED: 351.81mGy.cm Total DLP DATA REPOSITORY: All CT scans at this facility are submitted to the National Radiology Data Registry (NRDR) Dose Index Registry (DIR) with the [employer] (A[employer]). RADIATION OPTIMIZATION: All CT scans at this facility use at least one of these dose optimization te chniques: automated exposure control; mA and/or kV adjustment per patient size (includes targeted exa ms where dose is matched to clinical indication); or iterative reconstruction.
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
[2025-01-14] MEDS: Ketorolac 15 MG/ML VIAL IVP (20:06)
[2025-01-14 20:14] LABS: Abs Immature Grans 0.03 10^3/uL (0.0-0.06); Absolute Basophil Count 0.08 10^3/uL (0.0-0.2); Absolute Eosinophil Count 0.34 10^3/uL (0.0-0.7); Absolute Lymphocyte Count 4.62 10^3/uL (1.2-3.4); Absolute Neutrophil Count 4.56 10^3/uL (1.2-6.7); Basophils % 0.8 %; Eosinophils % 3.3 %; HCT 40.8 % (40.0-50.0); HGB 13.8 g/dL (13.5-17.5); Immature Grans % 0.3 %; Lymphocytes % 45.2 %; MCH 30.2 pg (27.0-33.0); MCHC 33.8 % (32.0-36.0); MCV 89 fL (80-95); MPV 9.1 fL (8.0-11.0); Monocytes % 5.9 %; Neutrophils % 44.5 %; Platelet Count 249 10^3/uL (130-400); RBC 4.57 10^6/uL (4.36-5.78); RDW 13.1 % (11.8-14.1); WBC 10.23 10^3/uL (4.4-10.8)
[2025-01-14] MEDS: Normal Saline - Diluent 50 ML VIAL IJ (20:18)
[2025-01-14] MEDS: Omnipaque 350 MG/ML 100 ML BTL 75 ML IJ (20:19)
[2025-01-14 20:21] LABS: Bilirubin Negative (Negative); Blood Negative (Negative); Clarity Clear (Clear); Glucose Negative (Negative); Ketones Negative (Negative); Leukocyte Esterase Negative (Negative); Nitrite Negative (Negative); Specific Gravity 1.025 (1.005-1.025); Urobilinogen 0.2 mg/dL (Up to 0.2)
[2025-01-14 20:40] LABS: ALT 20 U/L (16-63); AST 12 U/L (15-37); Alkaline Phosphatase 89 U/L (46-116); Anion Gap 5.7 mmol/L (3-11); BUN 12 mg/dL (7-18); Bilirubin, Total 0.3 mg/dL (0.2-1.0); CO2 31.3 mmol/L (21.0-32.0); CREATININE 0.9 mg/dL (0.70-1.30); Calcium 9.2 mg/dL (8.5-10.1); Chloride 105 mmol/L (98-107); Estimated GFR 125.39 (mL/min/1.73m2); Glucose 77 mg/dL (74-106); Potassium 3.8 mmol/L (3.5-5.1); Sodium 142 mmol/L (136-145); Total Protein 7.2 g/dL (6.4-8.2)
--- NOTE | 2025-01-14 21:18 | DI.VRAD_ITS ---
PROCEDURE INFORMATION: Exam: CT Abdomen And Pelvis With Contrast Exam date and time: 01/14/2025 8:19 PM Age: 19 years old Clinical indication: Other: Rlq and R flank pain, eval for stone or appe TECHNIQUE: Imaging protocol: Computed tomography of the abdomen and pelvis with contrast. Contrast material: OMNIPAUQE 350; Contrast volume: 75 ml; Contrast route: INTRAVENOUS (IV); COMPARISON: CT ABDOMEN PELVIS W 07/30/2024 2:09 PM FINDINGS: Limitations: Paucity of intra-abdominal fat. Lungs: Lung bases clear. Liver: Normal appearing liver. Gallbladder and biliary ducts: Prior cholecystectomy. No biliary dilatation. Pancreas: Normal appearing pancreas. Spleen: Normal appearing spleen. Adrenal glands: Normal appearing adrenal glands. Kidneys and ureters: Normal appearing kidneys. No hydronephrosis. No radiopaque renal calculi. No proximal ureterectasis. Mid-distal ureters obscured. No suspicious calcifications along the expected ureteral courses. Stomach and bowel: No oral contrast. Stomach moderately distended with ingested material. No small bowel dilatation to suggest obstruction. Normal-appearing colon. No evidence of diverticulitis or colitis. Appendix: Appendix partially obscured but normal in caliber through its visualized portion measuring 6 mm maximum transverse dimension on image 18 of series 4. No gross periappendiceal inflammatory change demonstrated. Intraperitoneal space: Small amount of free fluid in the deep pelvis. No free air. Vasculature: Normal caliber abdominal aorta. Lymph nodes: Scattered small mesenteric lymph nodes, nonspecific. Urinary bladder: Urinary bladder completely collapsed and not well evaluated but grossly unremarkable, as seen. Within the limits of visualization, no gross bladder wall thickening demonstrated. Reproductive: Mildly prominent prostate gland and seminal vesicles for the patient's age. Gross engorgement of the adjacent venous network along the deep pelvic sidewalls, larger on the left. Bones/joints: No acute fracture seen among the bones of the abdomen or pelvis. Soft tissues: No significant ventral or inguinal hernia. IMPRESSION: 1. Within the limits of the exam, no obstructing ureteral stone, hydronephrosis or evidence of recent stone passage is seen. 2. Trace fluid in the deep pelvis between the rectum in the seminal vesicles, nonspecific. 3. Mildly prominent prostate gland and seminal vesicles for the patient's age. Gross engorgement of the adjacent venous network along the deep pelvic sidewalls, larger on the left. Although this appearance is nonspecific, clinical correlation is recommended to exclude a urinary tract infection with acute prostatitis and acute seminal vesiculitis. 4. No acute bowel pathology demonstrated. Dictated and Authenticated by: Ozzy Laguna MD. Orderin Ericka Rodriguez MD
[2025-01-14] MEDS: Ciprofloxacin 500 MG TAB PO (22:22)
[2025-01-14 22:25] VITALS: BP 92/54; PULSE 67; RESP 14; TEMP 36.6; O2SAT 99
[2025-01-14 22:27] VITALS: BP 92/54; PULSE 67; RESP 14; O2SAT 99
[2025-01-16 11:08] LABS: Chlamydia Result Negative (Negative); GC Result Negative (Negative)
== END 2025-01-14 22:28 | disposition home or self-care (01) ==
PROVIDERS: Emergency Provider Student in an Organized Health Care Education/Training Program; PCP Nurse Practitioner Family
DX: N41.0 Acute prostatitis (principal); F17.290 Nicotine dependence, other tobacco product, uncomplicated
CPT/HCPCS: 80053; 87491; 87591; 96374; 99285; 74177; 81003; 85025; J1885; J3490

== ENCOUNTER 2025-01-22 01:52 | Emergency (ER) | payer BC, SELFPAY ==
[2025-01-22 01:56] VITALS: BP 131/81; PULSE 92; RESP 14; O2SAT 99
--- NOTE | 2025-01-22 02:14 | ED.GENADUL_ITS ---
Discharge Plan Disposition Patient Disposition: Home Condition: Good Discharge Details Clinical Impression: Contusion of hand, right Primary Care Provider: Ruth Trinidad ED Provider: Michael Barnett Home Meds and New Rx's Prescriptions: No Action dextroamphetamine-amphetamine [Adderall] 5 mg tablet 5 mg PO BID MDD 2 tablets Qty: 56 0RF Rx Instructions: administer doses at least 4-6 hours apart ciprofloxacin HCl [Cipro] 500 mg tablet 500 mg PO BID 14 Days Qty: 28 0RF Discharge Instructions Instructions: Minor Contusion ED Additional Instructions: At this time there is no evidence of fracture on the x-ray. You have likely bruised the bone. Please take Tylenol and Motrin as needed for pain. Ice the area frequently to help with the swelling. If you notice any worsening of your symptoms, or any new symptoms such as vomiting, diarrhea, fever, chills, shortness of breath, chest pain, numbness, weakness, or fainting , please return immediately to the emergency department for reevaluation. Please follow up with your primary care provider as soon as possible for reassessment and reevaluation. As always, it was a pleasure participating in your medical care today. Referrals: Ruth Trinidad NP [Primary Care Provider] - [facility] General Date/Time Provider Initiated Documentation: 01/22/25 02:06 . [facility] Narrative: This is a pleasant 19-year-old male with a history of being a right hand dominant who presents today for right hand pain. Patient states he was having a bad day and he punched a gas pump, led to immediate pain in his third/middle knuckle on the right hand. Pain is made worse when he flexes his hand/fingers. He denies any numbness or tingling. He has not taken any medication for the pain. No other complaints at this time. Related Data Home Medications ?Medication ?Instructions ?Recorded ?Confirmed dextroamphetamine-amphetamine 5 mg 5 mg PO BID #56 tabs 01/08/25 01/22/25 tablet (Adderall) ciprofloxacin HCl 500 mg tablet 500 mg PO BID 14 days #28 tabs 01/14/25 01/22/25 (Cipro) Previous Rx's ?Medication ?Instructions ?Recorded dextroamphetamine-amphetamine 5 mg 5 mg PO BID #56 tabs 01/08/25 tablet (Adderall) ciprofloxacin HCl 500 mg tablet 500 mg PO BID 14 days #28 tabs 01/14/25 (Cipro) Allergies Allergy/AdvReac Type Severity Reaction Status Date / Time No Known Allergies Allergy Verified 01/14/25 19:33 General Stated Complaint: Orthopedic JUVENCIO: 2 Exam Narrative Exam Narrative: 1.Const: Well-nourished, Well-developed, appearing stated age 2.Eyes: PERRL, no conjunctival injection, and symmetrical lids. 3.ENT: Atraumatic external nose and ears. Moist MM. Neck: Symmetric, trachea midline, No thyromegaly. 4.CVS: +S1/S2, Peripheral pulses 2+ and equal in all extremities. Brisk capillary refill in all extremities. 5.RESP: Unlabored respiratory effort. Clear to auscultation bilaterally. No wheezes rales or rhonchi 6.GI: Soft, Nontender/Nondistended, No hepatosplenomegaly. No guarding or rebound. 7.MSK: Symmetrically palpable radial and ulnar pulses. Capillary refill less cortes n 2 seconds to all digits. Intact sensation to light touch of the radial, median and ulnar nerves demonstrated by testing in the dorsal web space of the thumb, the distal palmar aspect of the index finger, and the lateral surface of the fifth finger. 2 point discrimination intact to 5mm (up to 6mm can be normal in digits 3-5) of discrimination in the affected digit. Intact motor function of the radial, median and ulnar nerves demonstrated by strength of extension of the isolated distal joint of the index finger, hand social sciences chair, and spreading of the 2nd through 5th digits. Intact recurrent median nerve as demonstrated by ability to move thumb fully through opposition, abduction and flexion. No snuffbox tenderness. Tenderness is noted over the distal third metacarpal at the metacarpal phalangeal joint. Flexion of the fingers reveals no deformity. Mild swelling at the third MCP joint. 8.Skin: Warm, Dry. No rashes or lesions. 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 Sensation grossly intact, no focal neurologic deficits. 10.Psych: (AAO) x3. Appropriate mood and affect Course Vital Signs Vital signs: Vital Signs Pulse 92 H 01/22/25 01:56 Respiratory Rate 14 01/22/25 01:56 Blood Pressure 131/81 01/22/25 01:56 Pulse Oximetry 99 01/22/25 01:56 Pulse 92 H 01/22/25 01:56 Respiratory Rate 14 01/22/25 01:56 Blood Pressure 131/81 01/22/25 01:56 Blood Pressure Position Sitting 01/22/25 01:56 Pulse Oximetry 99 01/22/25 01:56 Oxygen Delivery Method Room Air 01/22/25 01:56 Oxygen Flow Rate 0 01/22/25 01:56 Pain Level 7 01/22/25 02:03 Medical Decision Making This is a pleasant 19-year-old male with a history of being a right hand dominant who presents today for right hand pain. Patient states he was having a bad day and he punched a gas pump, led to immediate pain in his third/middle knuckle on the right hand. Pain is made worse when he flexes his hand/fingers. He denies any numbness or tingling. He has not taken any medication for the pain. No other complaints at this time. Tenderness is noted over the distal third metacarpal at the metacarpal phalangeal joint. Flexion of the fingers reveals no deformity. Mild swelling at the third MCP joint. Concern for boxer fracture. Will get x-ray monitor closely and reassess. He does not want any medication for pain. X-ray negative for fracture. Diagnosis is contused third metacarpal. Recommend NSAID therapy and ice. Discussed red flags for which to return. I have extensively reviewed the treatment plan and discharge instructions with the patient. I have addressed all patient concerns at this time. The patient was made aware of what symptoms to monitor for that would warrant a return to the emergency department. Discussed the plan with the patient, they demonstrate verbal understanding and agreement with our assessment and plan at this time. The documentation in this chart was dictated using [employer] dictation software. Please excuse any dictation errors. FINDINGS: Bones/joints: Three views of the right hand reveal no acute fracture or dislocation. Soft tissues: There is apparent soft tissue swelling along the ulnar margin of the hand. IMPRESSION: No acute fracture or dislocation seen in the right hand. Thank you for allowing us to participate in the care of your patient. 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 Anal fissure Gall stone Undescended testes Surgical History Normal esophagogastroduodenoscopy (EGD) 05/12/24 [facility] History of colonoscopy 05/12/24 [facility] Hx laparoscopic cholecystectomy (~05/2024) History of testicular surgery infant; undescended teste(s) Social History Smoking/Tobacco Use Status: Current every day Tobacco Type: e-cigarettes Smoking risk assessment performed?: Yes Alcohol Intake: former Drug use: Occasionally Substance use type: marijuana Adopted: No Caregiver/Support person: No Household members: significant other Housing: apartment Number of Children: 0 Communication Needs: None Do you need help understanding health information?: Often 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 Sexually active: Yes What is your relationship status?: living with partner How often do you talk on the phone with friends or family?: decline to answer How often do you get together with friends or relatives?: decline to answer How often do you attend buddhist or restorationism services?: decline to answer Do you belong to any clubs or organized social groups?: decline to answer Panel score (0-1 are the most socially isolated patients): 1 What type of physical activity do you participate in: none Dominga/Hoahaoism: Non yarsanism Firearms in home: No Do you feel safe at home: Yes Do you feel safe in your relationship?: Yes
--- NOTE | 2025-01-22 03:18 | DI.VRAD_ITS ---
PROCEDURE INFORMATION: Exam: XR Right Hand Exam date and time: 01/22/2025 2:20 AM Age: 19 years old Clinical indication: Injury or trauma; Other: Punched wall; Blunt trauma (contusions or hematomas); Hand; Right; Injury date: 01/22/25 TECHNIQUE: Imaging protocol: Radiologic exam of the right hand. Views: 3 or more views. COMPARISON: No relevant prior studies available. FINDINGS: Bones/joints: Three views of the right hand reveal no acute fracture or dislocation. Soft tissues: There is apparent soft tissue swelling along the ulnar margin of the hand. IMPRESSION: No acute fracture or dislocation seen in the right hand. Dictated and Authenticated by: Ozzy Laguna MD. Orderin Ericka Rodriguez MD
--- NOTE | 2025-01-22 06:02 | DI.RAD_ITS ---
Exam(s) XR HAND RT COMPLETE EXAM: XR HAND RT COMPLETE CLINICAL HISTORY: punched wall. Wall won.. TECHNIQUE: 2D digital imaging was performed. COMPARISON: No exams were available for comparison FINDINGS: 3 views No evidence of acute fracture or dislocation. No radiopaque foreign body. No osseous lesions nor er osions. IMPRESSION: No significant osseous findings. DATA REPOSITORY: RADIATION DOSE DELIVERED:
== END 2025-01-22 04:30 | disposition home or self-care (01) ==
PROVIDERS: Emergency Provider Student in an Organized Health Care Education/Training Program; PCP Nurse Practitioner Family
DX: S60.221A Contusion of right hand, initial encounter (principal); F17.290 Nicotine dependence, other tobacco product, uncomplicated; W22.01XA Walked into wall, initial encounter; Y93.89 Activity, other specified; Y92.89 Other specified places as the place of occurrence of the external cause
CPT/HCPCS: 99283; 73130